=== PATIENT | female | born 1930 | race Two or more races ===

== ENCOUNTER 2018-02-27 20:46 | Inpatient (IN) | payer MEDICARE, OTHER ==
[~2018-02-27] VITALS: Ht 149.9 cm; Wt 74.4 kg
--- NOTE | 2018-02-27 20:50 | NUR ---
BIBRA FROM 89 FROM HOME C/O COUGH X 3 HRS AGO. PT AOX3. RR EVEN AND UNLABORED. NO SOB NOTED. NAD NOTED. NO NVD AT THIS TIME. PT GOWNED AND PLACED ON MONITOR. DR SHAFFER AT BEDSIDE FOR EVAL.
[2018-02-27] MEDS ORDERED: RACEPINEPHRINE HCL 2.25% NEB 0.5 ML VIAL.NEB IH ONE ×2 (21:00→21:08)
[2018-02-27] MEDS ORDERED: CEFTRIAXONE 1GM BAG (ER ONLY) 50 ML IV ONE ×2 (21:00→21:18)
[2018-02-27] MEDS ORDERED: IV NS 0.9% 500 ML BAG IV ONE (21:00)
[2018-02-27] MEDS ORDERED: AZITHROMYCIN 500 MG in IV D5W 250 ML IV ONE (21:00)
[2018-02-27] MEDS ORDERED: DEXAMETHASONE SOD PHOSPHATE 10 MG/ML VIAL IV ONE (21:00)
--- NOTE | 2018-02-27 21:06 | NUR ---
Richard carroll in [facility] - 02/27/18 at [address] PT [address]
--- NOTE | 2018-02-27 21:07 | NUR ---
RT AT BEDSIDE FOR BREATHING TX.
[2018-02-27] MEDS ORDERED: DEXAMETHASONE SOD PHOSPHATE 10 MG/ML VIAL ONE (21:09)
[2018-02-27 21:10] LABS: BASOPHILS # (AUTO) 0.2 /CMM (0.0-0.2); BASOPHILS % (AUTO) 1.2 % (0.0-2.0); EOSINOPHILS % (AUTO) 0.8 % (0.0-6.0); HEMATOCRIT 44 % (33-45); HEMOGLOBIN 14.8 g/dL (11.5-14.8); LYMPHOCYTES # (AUTO) 2.7 /CMM (0.8-4.8); MEAN CORPUSCULAR HGB CONC 33 g/dl (31.0-36.0); MEAN CORPUSCULAR VOLUME 90 fL (82-100); MONOCYTES # (AUTO) 0.7 /CMM (0.1-1.30); MONOCYTES % (AUTO) 5.1 % (2.0-12.0); NEUTROPHILS # (AUTO) 10.7 /CMM (1.8-8.9); NEUTROPHILS % (AUTO) 73.9 % (43.0-81.0); PLATELET COUNT (AUTO) 309 /CMM (150-450); RDW COEFFICIENT OF VARIATION 13.2 (11.5-15.0); RED BLOOD CELL COUNT(AUTO) 4.91 MIL/uL (4.0-5.2); WHITE BLOOD COUNT (AUTO) 14.4 K/uL (4.3-11.0)
[2018-02-27 21:22] LABS: CARBON DIOXIDE 27 mmol/L (21-32); CHLORIDE 102 mmol/L (98-107); CREATININE 0.6 mg/dL (0.6-1.3); GLUCOSE 140 mg/dL (74-106); POTASSIUM 3.8 mmol/L (3.5-5.1); SODIUM SERUM 136 mmol/L (136-145); UREA NITROGEN, BLOOD 16 mg/dL (7-18)
[2018-02-27 21:25] LABS: INR 0.95 (0.85-1.15)
[2018-02-27 21:27] LABS: ALANINE AMINOTRANSFERASE 17 U/L (12-78); ALBUMIN 3.9 g/dL (3.4-5.0); ALKALINE PHOSPHATASE 75 U/L (46-116); ASPARTATE AMINOTRANSFERASE 22 U/L (15-37); BILIRUBIN,DIRECT 0.1 mg/dL (0.0-0.2); BILIRUBIN,TOTAL 0.5 mg/dL (0.2-1.0); TOTAL PROTEIN, SERUM 7.6 g/dL (6.4-8.2)
[2018-02-27 21:30] LABS: TROPONIN I 0.081 ng/mL (0.00-0.056)
--- NOTE | 2018-02-27 21:41 | NUR ---
RADIOLOGY AT BEDSIDE FOR CXR
[2018-02-27] MEDS ORDERED: AZITHROMYCIN 500 MG VIAL ONE (21:54)
--- NOTE | 2018-02-27 21:59 | NUR ---
PT RETURNED FROM CT.
[2018-02-27] MEDS ORDERED: ASPIRIN 81 MG TAB.CHEW PO ONE (22:00)
[2018-02-27] MEDS ORDERED: ASPIRIN 81 MG TAB.CHEW ONE (22:21)
[2018-02-27] MEDS ORDERED: Magnesium 1GM/D5W 100ML PREMIX 100 ML IV SCH (22:30)
[2018-02-27] MEDS ORDERED: ACETAMINOPHEN ES 500 MG TABLET PO ONE (22:30)
--- NOTE | 2018-02-27 22:32 | NUR ---
PER KAYLIN INFORMED BY PT DAUGHTER PT NOTED BLUE, "VOMITTING AND CHOKING" PT SUCTIONED AND MD AT BEDSIDE. 10 CC OF FLUID SUCTIONED.
--- NOTE | 2018-02-27 22:35 | NUR ---
DR. MONTOYA AT BEDSIDE, RTS AT BEDSIDE. PT INTUBATED. ET TUBE 7.5/ 22CM AT THE LIP.
--- NOTE | 2018-02-27 22:36 | NUR ---
CPR INITIATED PER DR. MONTOYA.
--- NOTE | 2018-02-27 22:40 | NUR ---
REACHED ROSC, CODE ENDED. PULSE NOTED. MONITOR DISPLAYS SINUS TACH 140
--- NOTE | 2018-02-27 22:42 | NUR ---
PT VENT SETTINGS AC 18 TV 500 FI02 100 PEEP 5
[2018-02-27] MEDS ORDERED: PROPOFOL 100 ML ONE (22:44)
[2018-02-27 22:45] VITALS: BP 205/118
--- NOTE | 2018-02-27 22:45 | NUR ---
Richard carroll in [facility] - 02/27/[address] MONTOYA AT BEDSIDE, RTS AT BEDSIDE. PT INTUBATED. ET TUBE 7.5/ 22CM AT THE LIP.
--- NOTE | 2018-02-27 22:47 | NUR ---
RADIOLOGY AT BEDSIDE FOR CXR
--- NOTE | 2018-02-27 23:03 | NUR ---
CALLED TO PT BEDSIDE FOR CODE BLUE. RT ARRIVED WITH SETTING UP ETT. RT ASSISTED DR WITH INTUBATION, ETT 7.5@22CM. RT PREFORMED CPR PER MD VERBAL ORDER. PT VENTILATED VIA AMBU BAG AT THIS TIME. ETT SECURED VIA ANCHOR FAST. UPON RETURN OF SPONTANEOUS CIRCULATION PT PLACED ON VENT, SETTINGS AC 18 500 100% +5. ALARMS SET AND AUDIBLE. AMBU BAG AT BEDSIDE. PLUGGED INTO RED OUTLET. PT TOLERATING SETTINGS AT THIS TIME Addendum: 02/27/18 at 2313 by TORI SPAULDING RT Amended: Links added.
--- NOTE | 2018-02-27 23:05 | NUR ---
DR. MONTOYA AT BEDSIDE SPEAKING TO PT DAUGHTER REGARDING POC.
[2018-02-27] MEDS ORDERED: PROPOFOL 100 ML IV PRN (23:30)
--- NOTE | 2018-02-27 23:45 | NUR ---
PER LETI GAVE REPORT TO BANKING CONSULTANT ZITA FOR [facility] BED 256
--- NOTE | 2018-02-27 23:54 | NUR ---
PT TRANSFERRED PER ACLS PROTOCOL.
[2018-02-28] VITALS (63 sets, daily range): BP systolic 119–182; BP diastolic 51–112
--- NOTE | 2018-02-28 | NUR ---
MURAL PAINTER. TROPONIN 1.385,LACTIC ACID 2.6. PAGED MD ROMEO. WAITING FOR CALL BACK.
[2018-02-28] MEDS ORDERED: ONDANSETRON HCL/PF 4 MG/2 ML VIAL IVP PRN (00:30)
[2018-02-28] MEDS ORDERED: methylPREDNISolone SOD SUCC 40 MG/ML VIAL IV SCH (00:30)
[2018-02-28] MEDS ORDERED: ZOLPIDEM TARTRATE 5 MG TABLET PO PRN (00:30)
[2018-02-28] MEDS ORDERED: IPRATROPIUM NEB FS 0.5 MG/2.5 ML AMPUL.NEB NEB PRN (00:30)
[2018-02-28] MEDS ORDERED: MAGNESIUM HYDROXIDE 30 ML UDC PO PRN (00:30)
[2018-02-28] MEDS ORDERED: HYDROCODONE/APAP 5/325MG 1 EACH TABLET PO PRN (00:30)
[2018-02-28] MEDS ORDERED: ALBUTEROL FS 2.5 MG/0.5 ML VIAL.NEB NEB PRN (00:30)
[2018-02-28] MEDS ORDERED: ACETAMINOPHEN 325 MG TABLET PO PRN (00:30)
[2018-02-28] MEDS ORDERED: Z GUARD REMEDY 2 OZ OINT TP PRN (00:30)
[2018-02-28 00:33] LABS: ABG OXYGEN SATURATION 98.7 % (92.0-98.5); ABG PCO2 35.4 mmHg (35.0-45.0); ABG PH 7.426 (7.350-7.450); ABG PO2 179.1 mmHg (75.0-100.0); AaDO2 498.5 mmHg; COHb 0.3 % (0.5-1.5); MetHb 0.6 % (0.0-1.5); O2Hb 97.8 % (94.0-97.0); PEEP,BG 5 cm H2O; SITE, ABG Right Radial
[2018-02-28] MEDS: PROPOFOL 100 ML IV PRN ×5 (00:35→20:57)
--- NOTE | 2018-02-28 00:37 | NUR ---
POST INTUBATION ABG DONE. RN NOTIFIED WITH THE RESULT. TITRATED FIO2. WILL CONTINUE TO MONITOR.
[2018-02-28] MEDS: IV NS 0.9% 1,000 ML IV PRN ×2 (00:38→16:00)
--- NOTE | 2018-02-28 00:42 | NUR ---
KEY BED INSTALLER. ADMISSION. PT BEING ADMITTED FROM ER VIA [facility] RESPIRATORY FAILURE. ORALLY INTUBATED. SEDATED WITH DIPRIVAN. ETT 7,5,LIP 22,AC 18,TV 500,FIO2 100%, PEEP 5. SAT 100%, NO ACUTE DISTRESS NOTED. EQUIPMENT INSTALLATION PROFESSIONAL SHOWING NSR. IV RT AND LT HAND 18G IVF NS 75ML/H, FC PATENT. URINE DRAINING. HOB ELEVATED. NPO. ROSALIO SOFT WRIST RESTRAINT CHECKED AND RELEASED. NO INJURY OR REDNESS NOTED.WILL CONTINUE TO MONITOR VITALS.
[2018-02-28] MEDS: ENOXAPARIN SODIUM 40 MG/0.4 ML DISP.SYRIN SQ SCH (00:44)
[2018-02-28 01:12] LABS: HEMATOCRIT 41 % (33-45); HEMOGLOBIN 13.7 g/dL (11.5-14.8); LYMPHOCYTES # (AUTO) 0.2 /CMM (0.8-4.8); LYMPHOCYTES % (AUTO) 1.1 % (20.0-44.0); MEAN CORPUSCULAR HGB CONC 34 g/dl (31.0-36.0); MEAN CORPUSCULAR VOLUME 90 fL (82-100); MONOCYTES # (AUTO) 0.4 /CMM (0.1-1.30); MONOCYTES % (AUTO) 2.4 % (2.0-12.0); NEUTROPHILS # (AUTO) 16.3 /CMM (1.8-8.9); NEUTROPHILS % (AUTO) 96.5 % (43.0-81.0); PLATELET COUNT (AUTO) 291 /CMM (150-450); RDW COEFFICIENT OF VARIATION 14.3 (11.5-15.0); RED BLOOD CELL COUNT(AUTO) 4.49 MIL/uL (4.0-5.2); WHITE BLOOD COUNT (AUTO) 16.9 K/uL (4.3-11.0)
[2018-02-28 01:27] LABS: ALANINE AMINOTRANSFERASE 57 U/L (12-78); ALBUMIN 3.3 g/dL (3.4-5.0); ALKALINE PHOSPHATASE 73 U/L (46-116); ASPARTATE AMINOTRANSFERASE 89 U/L (15-37); BILIRUBIN,TOTAL 0.5 mg/dL (0.2-1.0); CALCIUM, SERUM 8.4 mg/dL (8.5-10.1); CARBON DIOXIDE 24 mmol/L (21-32); CHLORIDE 100 mmol/L (98-107); CREATININE 0.7 mg/dL (0.6-1.3); GLUCOSE 270 mg/dL (74-106); POTASSIUM 4.1 mmol/L (3.5-5.1); SODIUM SERUM 134 mmol/L (136-145); TOTAL PROTEIN, SERUM 6.6 g/dL (6.4-8.2); UREA NITROGEN, BLOOD 16 mg/dL (7-18)
[2018-02-28] MEDS ORDERED: METRONIDAZOLE 500MG/ NS 100ML 100 ML IV ONE (05:10)
[2018-02-28] MEDS: METRONIDAZOLE 500MG/ NS 100ML 500 MG in PREMIX 1 EA IV SCH ×3 (05:15→21:30)
--- NOTE | 2018-02-28 06:08 | NUR ---
VOCATIONAL NURSE. AM CARE, ORAL CARE, BED BATH GIVEN. LINEN CHANGED, REMAINING SAME VENT SETTING TOLERATED WELL. SAT 98%. NO ACUTE DISTRESS NOTED, EMERGENCY MEDICAL TECH SHOWING NSR. IV RT HAND NS 75ML/H, DIPRIVAN 50MCG/KG/MIN. HOB [id number]. OGT INTACT, FC PATENT URINE DRAINING. TURN AND REPOSITION Q2H. WILL CONTINUE TO MONITOR VITALS.
--- NOTE | 2018-02-28 07:30 | NUR ---
ELECTRICAL ACCESSORIES ASSEMBLER RECEIVED PATIENT ON MECHANICAL VENTILATORY SUPPORT SATURATING WELL ON DIPRIVAN AT 50 MCGS WITH ON GOING IVF AT 75 MLS/HR MAINTAINED ON NPO TURNED PATIENT FROM SIDE TO SIDE WITH JASON CATHETER DRAINING TO YELLOWISH URINE SMALL IN AMOUNT MONITORED CLOSELY
--- NOTE | 2018-02-28 09:00 | NUR ---
HOSPITAL SOCIAL WORKER SEDATION VACATION STARTED MONITORED CLOSELY
--- NOTE | 2018-02-28 09:20 | NUR ---
WOUND CARE CONSULT: PT PRESENTS WITH INTACT SKIN, SOME BRUISING TO RT THIGH, PRESENT ON ADMISSION. CURRENT KALLI SCORE IS 14. ALL SKIN PROTECTION MEASURES IN PLACE AND DISCUSSED WITH NURSING STAFF. CASIE DAVIDSON NOTED. WILL SEE PRN. AREVALO IN AGREEMENT WITH PLAN OF CARE. Addendum: 02/28/18 at 0934 by LAMAR MCCRARY WNDNU Amended: Links added.
--- NOTE | 2018-02-28 09:25 | NUR ---
WALLCOVERING HANGER SEDATION VACATION ENDED PATIENT OPENS EYES, MOVES HAND BUT NO INTERACTION NOTED MONITORED CLOSELY PLACED ON LOW DOSE DIPRIVAN WILL INCREASE WHEN NEEDED
[2018-02-28] MEDS ORDERED: OXYB10TA PO (11:07)
--- NOTE | 2018-02-28 11:21 | NUR ---
CAR PARK ATTENDANT DISCUSSED WITH THE FAMILY MEMBER ABOUT PATIENT'S STATUS I WAS ABLE TO TALK TO THE PATIENT'S GRANDSON WHO IS A DOCTOR FROM [place] GAVE HIM UPDATES ON HIS GRANDMOTHER AND HE WANTED TO PERFORM BRONCHOSCOPY TO THE PATIENT WILL INFORM SWAGE TENDER ABOUT THIS
[2018-02-28] MEDS ORDERED: DEXTROSE 50%-WATER 50 ML DISP.SYRIN IV PRN (17:30)
[2018-02-28] MEDS: BLOOD SUGAR DIAGNOSTIC 1 EACH STRIP IN SCH ×2 (17:40→23:25)
[2018-02-28] MEDS: INSULIN REGULAR, HUMAN 100 UNIT/ML 3 ML VIAL SQ PRN (17:51)
--- NOTE | 2018-02-28 18:04 | NUR ---
ELECTRICAL WIRER AMIRA EMPLOYEE DEVELOPMENT DIRECTOR, SEEN AND EXAMINED THE PATIENT AMIRA WAS ABLE TO TALK TO THE GRANDSON WHO IS A MEDICAL DOCTOR REGARDING THE THE PATIENT'S STATUS AND PROCEDURE FOR TOMORROW CONSENT SIGNED FOR EGD AWAITING TO BE CLEARED BY DOCUMENT CLERK BEFORE THE PROCEDURE DR. JOLLEY IS INFORMED FOR SURGERY CLEARANCE
--- NOTE | 2018-02-28 19:30 | NUR ---
ICU/RN NOTES: RECEIVED PT. IN BED W/ EYES CLOSED W/ ETT 7.5 LIP SECURED. ON DIPRIVAN 30 MCGS. PT. IS SEDATED. HAS BILATERAL SOFT WRIST RESTRAINTS. ON TELE MONITOR W/ NSR W/ PAC'S. PT. HAS RAC AND LFA G 18 PATENT AND INTACT W/ NO S/S OF INFECTION/INFILTRATION NOTED. NO FACIAL GRIMACES OR MOANING NOTED. NO S/S OF ANY RESPIRATORY DISTRESS. TOLERATING VENT SETTINGS WELL. ON IVF NS @ 75 ML/HR. PT. WILL BE NPO AFTER MIDNIGHT DUE TO EGD W/ DR. CANALES. CALL LIGHT W/ REACH. ALL NEEDS MEET. WILL CONTINUE TO MONITOR.
--- NOTE | 2018-02-28 20:00 | NUR ---
PT RECEIVED ORALLY INTUBATED 7.0 ETT SECURED AT 22CM AT THE LIP. NO RESP DISTRESS NOTED. SX'D FOR MOD AMT OF THICK GUDINO SECRETIONS. VENT ALARMS SET AND AUDIBLE. AMBU BAG AT BEDSIDE. ETT SECURED, CUFF BUILDING MATERIALS SALES ATTENDANT. MOVED ETT TO THE LEFT SIDE. WILL CONTINUE TO MONITOR. Addendum: 02/28/18 at 2001 by AGUSTIN OWENS RT Amended: Links added.
[2018-02-28] MEDS ORDERED: CEFTRIAXONE 1 G in IV D5W 50 ML IV SCH (21:00)
[2018-03-01] VITALS (58 sets, daily range): BP systolic 90–207; BP diastolic 17–126
[2018-03-01] MEDS: ENOXAPARIN SODIUM 40 MG/0.4 ML DISP.SYRIN SQ SCH ×2 (00:20→23:53)
[2018-03-01] MEDS: PROPOFOL 100 ML IV PRN ×6 (03:41→22:26)
[2018-03-01 04:36] LABS: HEMATOCRIT 39 % (33-45); HEMOGLOBIN 13.3 g/dL (11.5-14.8); LYMPHOCYTES # (AUTO) 1.2 /CMM (0.8-4.8); LYMPHOCYTES % (AUTO) 7.5 % (20.0-44.0); MEAN CORPUSCULAR HGB CONC 34 g/dl (31.0-36.0); MEAN CORPUSCULAR VOLUME 91 fL (82-100); MONOCYTES # (AUTO) 1.1 /CMM (0.1-1.30); MONOCYTES % (AUTO) 6.6 % (2.0-12.0); NEUTROPHILS # (AUTO) 14.1 /CMM (1.8-8.9); NEUTROPHILS % (AUTO) 85.9 % (43.0-81.0); PLATELET COUNT (AUTO) 238 /CMM (150-450); RDW COEFFICIENT OF VARIATION 14.2 (11.5-15.0); RED BLOOD CELL COUNT(AUTO) 4.26 MIL/uL (4.0-5.2); WHITE BLOOD COUNT (AUTO) 16.4 K/uL (4.3-11.0)
[2018-03-01 04:52] LABS: CARBON DIOXIDE 23 mmol/L (21-32); CHLORIDE 103 mmol/L (98-107); CREATININE 0.5 mg/dL (0.6-1.3); GLUCOSE 119 mg/dL (74-106); PHOSPHORUS 1.7 mg/dL (2.5-4.9); POTASSIUM 3.8 mmol/L (3.5-5.1); SODIUM SERUM 136 mmol/L (136-145); UREA NITROGEN, BLOOD 22 mg/dL (7-18)
[2018-03-01 04:56] LABS: CHOLESTEROL 162 mg/dL (<200); HDL CHOLESTEROL 66 mg/dL (40-60); LDL 81 mg/dL (0-99); TRIGLYCERIDES 76 mg/dL (30-150)
--- NOTE | 2018-03-01 05:01 | NUR ---
ETT MOVED TO RIGHT SIDE.
[2018-03-01] MEDS: METRONIDAZOLE 500MG/ NS 100ML 500 MG in PREMIX 1 EA IV SCH ×2 (05:04→12:17)
[2018-03-01] MEDS: IV NS 0.9% 1,000 ML IV PRN ×2 (05:33→23:13)
[2018-03-01] MEDS: BLOOD SUGAR DIAGNOSTIC 1 EACH STRIP IN SCH ×4 (05:37→23:56)
--- NOTE | 2018-03-01 07:21 | NUR ---
ICU/RN NOTES: NO ACUTE CHANGES NOTED DURING THIS SHIFT. REPORT GIVEN TO AM NURSE FOR PALMER.
[2018-03-01 09:02] LABS: THYROID STIMULATING HORMONE 0.787 uIU/mL (0.358-3.74)
[2018-03-01 10:19] LABS: TROPONIN I 1.391 ng/mL (0.00-0.056)
[2018-03-01] MEDS ORDERED: METOCLOPRAMIDE HCL 10 MG/2 ML VIAL IV ONE (10:30)
[2018-03-01] MEDS ORDERED: METOCLOPRAMIDE HCL 10 MG/2 ML VIAL IV SCH ×2 (10:30→16:00)
[2018-03-01] MEDS ORDERED: Sodium Phosphate 7.5 MMOL in IV D5W 100 ML IV ONE (11:00)
[2018-03-01] MEDS ORDERED: PANTOPRAZOLE 40 MG TABLET.DR PO SCH (17:00)
[2018-03-01] MEDS: INSULIN REGULAR, HUMAN 100 UNIT/ML 3 ML VIAL SQ PRN (17:07)
[2018-03-01] MEDS: METOCLOPRAMIDE HCL 10 MG/2 ML VIAL IV SCH ×2 (17:11→23:51)
[2018-03-01] MEDS: NITROGLYCERIN 30 GM TUBE TOP SCH (19:08)
--- NOTE | 2018-03-01 20:00 | NUR ---
received pt from day shift, sedated on Diprivan at 35mcg, SR, PACs, intubated on the vent, lungs congested, no edema, NG tube clamped, NPO, diaper on, restraints on, v/s stable, no pain, pt turned and repositioned.
--- NOTE | 2018-03-01 20:10 | NUR ---
PT RECEIVED ORALLY INTUBATED 7.0 ETT SECURED @22 CM AT THE LIP, WITH NOTED SETTINGS, AC 18,500 ,PEEP 5 , 40% . VENT ALARMS SET AND AUDIBLE. AMBU BAG AT [facility]. SUCTIONED SMALL AMOUNT OF THICK YELLOW SECRETIONS. NO RESPIRATORY DISTRESS NOTED AT THIS TIME. WILL CONTINUE TO MONITOR.
[2018-03-01] MEDS: PANTOPRAZOLE 40 MG VIAL IV SCH (21:22)
[2018-03-01] MEDS: PIPERACILLIN /TAZOBACTAM 3.375 G in IV D5W 50 ML IV SCH (21:22)
[2018-03-02] VITALS (48 sets, daily range): BP systolic 97–179; BP diastolic 39–108
--- NOTE | 2018-03-02 00:18 | NUR ---
pt is resting in the bed, sedated on Diprivan at 35mcg, v/s stable, no pain, pt turned and repositioned q2hrs.
[2018-03-02] MEDS: ACETAMINOPHEN 650 MG/20.3 ML UDC NG PRN (00:34)
--- NOTE | 2018-03-02 04:20 | NUR ---
pt is resting in the bed, sedated on Diprivan at 30mcg, SR, v/s stable, no pain, pt cleaned, changed and repositioned q2hrs.
[2018-03-02] MEDS: PROPOFOL 100 ML IV PRN ×2 (04:30→23:19)
[2018-03-02] MEDS: PIPERACILLIN /TAZOBACTAM 3.375 G in IV D5W 50 ML IV SCH ×4 (05:04→23:45)
[2018-03-02] MEDS: METOCLOPRAMIDE HCL 10 MG/2 ML VIAL IV SCH ×3 (05:04→18:04)
[2018-03-02 05:16] LABS: EOSINOPHILS % (AUTO) 0.5 % (0.0-6.0); HEMATOCRIT 38 % (33-45); HEMOGLOBIN 13.2 g/dL (11.5-14.8); LYMPHOCYTES # (AUTO) 1.9 /CMM (0.8-4.8); LYMPHOCYTES % (AUTO) 13.2 % (20.0-44.0); MEAN CORPUSCULAR HGB CONC 34 g/dl (31.0-36.0); MEAN CORPUSCULAR VOLUME 91 fL (82-100); MONOCYTES # (AUTO) 0.7 /CMM (0.1-1.30); MONOCYTES % (AUTO) 4.7 % (2.0-12.0); NEUTROPHILS # (AUTO) 11.7 /CMM (1.8-8.9); NEUTROPHILS % (AUTO) 81.6 % (43.0-81.0); PLATELET COUNT (AUTO) 208 /CMM (150-450); RDW COEFFICIENT OF VARIATION 14.1 (11.5-15.0); RED BLOOD CELL COUNT(AUTO) 4.21 MIL/uL (4.0-5.2); WHITE BLOOD COUNT (AUTO) 14.3 K/uL (4.3-11.0)
[2018-03-02] MEDS: NITROGLYCERIN 30 GM TUBE TOP SCH ×2 (05:36→18:06)
[2018-03-02 06:04] LABS: ALANINE AMINOTRANSFERASE 46 U/L (12-78); ALBUMIN 2.3 g/dL (3.4-5.0); ALKALINE PHOSPHATASE 64 U/L (46-116); ASPARTATE AMINOTRANSFERASE 29 U/L (15-37); BILIRUBIN,TOTAL 0.8 mg/dL (0.2-1.0); CARBON DIOXIDE 21 mmol/L (21-32); CHLORIDE 105 mmol/L (98-107); CREATININE 0.6 mg/dL (0.6-1.3); GLUCOSE 122 mg/dL (74-106); MAGNESIUM 2.7 mg/dL (1.8-2.4); PHOSPHORUS 2.1 mg/dL (2.5-4.9); POTASSIUM 3.6 mmol/L (3.5-5.1); SODIUM SERUM 136 mmol/L (136-145); TOTAL PROTEIN, SERUM 5.6 g/dL (6.4-8.2); UREA NITROGEN, BLOOD 17 mg/dL (7-18)
[2018-03-02] MEDS: BLOOD SUGAR DIAGNOSTIC 1 EACH STRIP IN SCH ×4 (06:19→23:52)
[2018-03-02 06:21] LABS: TROPONIN I 0.466 ng/mL (0.00-0.056)
[2018-03-02] MEDS ORDERED: CLONIDINE HCL 0.2MG/24H PTWK 1 EA PATCH TD SCH (07:00)
[2018-03-02] MEDS ORDERED: POTASSIUM PHOSPHATE MM 15 MMOL in IV D5W 250 ML IV SCH (09:00)
[2018-03-02] MEDS: PANTOPRAZOLE 40 MG VIAL IV SCH ×2 (09:35→21:04)
--- NOTE | 2018-03-02 10:37 | NUR ---
Spoke with Dr Roca about Dr Alegria's recommendation for peg tube and she said if the daughter Madelyn gave permission, then put order in. Spoke with Madelyn and she agreed to peg and signed cont for peg, anesthesia and blood transfusion.
[2018-03-02] MEDS: INSULIN REGULAR, HUMAN 100 UNIT/ML 3 ML VIAL SQ PRN (13:03)
[2018-03-02] MEDS: IV NS 0.9% 1,000 ML IV PRN (14:27)
[2018-03-02 14:41] LABS: ABG BASE EXCESS -1.7 mmol/L; ABG PCO2 25.8 mmHg (35.0-45.0); ABG PH 7.501 (7.350-7.450); ABG PO2 114.5 mmHg (75.0-100.0); PEEP,BG 5 cm H2O; SITE, ABG Left Radial; VT, ABG 500 mL
[2018-03-02] MEDS: hydrALAZINE HCL IV 20 MG VIAL IV PRN (15:28)
[2018-03-02] MEDS: JEVITY 1.2 CAL 1,000 ML BOTTLE PEG SCH (17:00)
--- NOTE | 2018-03-02 19:30 | NUR ---
ICU/RN RECEIVED PT.ON VENT VIA ORAL ETT,SEDATED W/DIPRIVAN AT 30MCG/KG/MIN.OPENS EYES TO TO TOUCH.
[2018-03-03] VITALS (55 sets, daily range): BP systolic 89–189; BP diastolic 40–97
[2018-03-03] MEDS: ENOXAPARIN SODIUM 40 MG/0.4 ML DISP.SYRIN SQ SCH (00:30)
--- NOTE | 2018-03-03 00:30 | NUR ---
ICU/RN LOVENOX NOT GIVEN,PULLED OUT AT 0930 IN AM 03/02
--- NOTE | 2018-03-03 03:57 | NUR ---
RT PT RECEIVED INTUBATED ON [facility] VENT WITH NOTED SETTING. ETT PATENT AND SECURE VIA ANCHOR FAST. VENT TO RED OUTLET. ALARM SET AND AUDIBLE. DRAFTER SEISMOGRAPH DONE. AMBU BAG AT [facility]. NO SOB OR DISTRESS NOTED ON SHIFT. Addendum: 03/03/18 at 0357 by KELBY HENDRICKS RT Amended: Links added.
[2018-03-03 05:13] LABS: EOSINOPHILS % (AUTO) 1.3 % (0.0-6.0); HEMATOCRIT 36 % (33-45); HEMOGLOBIN 12.3 g/dL (11.5-14.8); LYMPHOCYTES % (AUTO) 7.3 % (20.0-44.0); MEAN CORPUSCULAR HGB CONC 34 g/dl (31.0-36.0); MEAN CORPUSCULAR VOLUME 91 fL (82-100); MONOCYTES % (AUTO) 7.2 % (2.0-12.0); NEUTROPHILS % (AUTO) 84.2 % (43.0-81.0); PLATELET COUNT (AUTO) 232 /CMM (150-450); RDW COEFFICIENT OF VARIATION 14.4 (11.5-15.0); RED BLOOD CELL COUNT(AUTO) 4.01 MIL/uL (4.0-5.2); WHITE BLOOD COUNT (AUTO) 14.2 K/uL (4.3-11.0)
[2018-03-03 05:35] LABS: TROPONIN I 0.229 ng/mL (0.00-0.056)
[2018-03-03 05:42] LABS: ALANINE AMINOTRANSFERASE 33 U/L (12-78); ALBUMIN 1.9 g/dL (3.4-5.0); ALKALINE PHOSPHATASE 63 U/L (46-116); ASPARTATE AMINOTRANSFERASE 18 U/L (15-37); BILIRUBIN,TOTAL 0.7 mg/dL (0.2-1.0); CARBON DIOXIDE 25 mmol/L (21-32); CHLORIDE 111 mmol/L (98-107); CREATININE 0.2 mg/dL (0.6-1.3); GLUCOSE 132 mg/dL (74-106); MAGNESIUM 2.3 mg/dL (1.8-2.4); PHOSPHORUS 2.4 mg/dL (2.5-4.9); POTASSIUM 3.4 mmol/L (3.5-5.1); SODIUM SERUM 143 mmol/L (136-145); TOTAL PROTEIN, SERUM 5.3 g/dL (6.4-8.2); UREA NITROGEN, BLOOD 14 mg/dL (7-18)
[2018-03-03] MEDS: METOCLOPRAMIDE HCL 10 MG/2 ML VIAL IV SCH ×4 (06:26→18:03)
[2018-03-03] MEDS: NITROGLYCERIN 30 GM TUBE TOP SCH ×2 (06:27→18:04)
[2018-03-03] MEDS: PIPERACILLIN /TAZOBACTAM 3.375 G in IV D5W 50 ML IV SCH ×4 (06:28→23:42)
[2018-03-03] MEDS: PROPOFOL 100 ML IV PRN ×2 (06:43→12:06)
[2018-03-03] MEDS: IV NS 0.9% 1,000 ML IV PRN ×2 (07:00→20:37)
[2018-03-03] MEDS: INSULIN REGULAR, HUMAN 100 UNIT/ML 3 ML VIAL SQ PRN ×3 (07:07→17:59)
[2018-03-03] MEDS: BLOOD SUGAR DIAGNOSTIC 1 EACH STRIP IN SCH ×3 (07:10→17:59)
--- NOTE | 2018-03-03 07:15 | NUR ---
ICU/RN REPORT AND CARE OF PT. GIVEN TO ROOSEVELT.PT REMAINS ON DIPRIVAN.TOLERATING TUBE FEEDING WELL
[2018-03-03] MEDS ORDERED: POTASSIUM CHLORIDE 20 MEQ POWDER PACKET NG SCH (08:30)
[2018-03-03] MEDS: PANTOPRAZOLE 40 MG VIAL IV SCH ×2 (08:39→20:55)
[2018-03-03] MEDS: ACETAMINOPHEN 650 MG/20.3 ML UDC NG PRN ×2 (08:39→14:32)
[2018-03-03 09:26] LABS: ABG BASE EXCESS -3.7 mmol/L; ABG OXYGEN SATURATION 96.9 % (92.0-98.5); ABG PCO2 33.1 mmHg (35.0-45.0); ABG PH 7.403 (7.350-7.450); ABG PO2 97.6 mmHg (75.0-100.0); AaDO2 149.5 mmHg; COHb 0.3 % (0.5-1.5); MetHb 0.5 % (0.0-1.5); O2Hb 96.1 % (94.0-97.0); PEEP,BG 5 cm H2O; SITE, ABG Right Radial; VT, ABG 450 mL
[2018-03-03] MEDS ORDERED: NEUTRA PHOS 1 POWD.PACKET GT ONE (15:30)
--- NOTE | 2018-03-03 19:30 | NUR ---
ICU/RN RECEIVED PT. ON VENT VIA ORAL ETT,ON DIPRIVAN DRIP AT 15MCG/KG/MIN.OPENS EYES TO TO TOUCH AND WHEN NANAME CALLED.DOES NOT TRACK,DOES NOT FOLLOW COMMANDS.GASTROSTOMY TUBE IN OLACE.NPO FOR NOW.
--- NOTE | 2018-03-03 19:51 | NUR ---
pt sputum sample collected roughly 10cc, thick red tinged galarza secretion collected. Sample was labeled and placed in fridge for collection by slab polisher Abril is aware.
[2018-03-03] MEDS: hydrALAZINE HCL IV 20 MG VIAL IV PRN (20:54)
[2018-03-04] VITALS (58 sets, daily range): BP systolic 116–185; BP diastolic 51–79
[2018-03-04] MEDS: METOCLOPRAMIDE HCL 10 MG/2 ML VIAL IV SCH ×4 (00:15→17:29)
[2018-03-04] MEDS: BLOOD SUGAR DIAGNOSTIC 1 EACH STRIP IN SCH ×4 (00:16→17:30)
[2018-03-04] MEDS: ENOXAPARIN SODIUM 40 MG/0.4 ML DISP.SYRIN SQ SCH (00:25)
--- NOTE | 2018-03-04 02:00 | NUR ---
ICU/RN INCONTINENT OF LARGE AMT URINE,DIAPER SOAKED,CLEANSED AND CHUX CHANGED.EYES OPEN AND TRACKS SOMETIMES DOES NOT FOLLOW COMMANDS.
[2018-03-04] MEDS: hydrALAZINE HCL IV 20 MG VIAL IV PRN ×3 (03:02→17:29)
[2018-03-04 04:59] LABS: BASOPHILS % (AUTO) 0.2 % (0.0-2.0); EOSINOPHILS % (AUTO) 2.9 % (0.0-6.0); HEMATOCRIT 39 % (33-45); HEMOGLOBIN 12.8 g/dL (11.5-14.8); LYMPHOCYTES # (AUTO) 1.5 /CMM (0.8-4.8); LYMPHOCYTES % (AUTO) 9.8 % (20.0-44.0); MEAN CORPUSCULAR HGB CONC 33 g/dl (31.0-36.0); MEAN CORPUSCULAR VOLUME 91 fL (82-100); MONOCYTES # (AUTO) 1.4 /CMM (0.1-1.30); MONOCYTES % (AUTO) 9.1 % (2.0-12.0); NEUTROPHILS # (AUTO) 12.3 /CMM (1.8-8.9); PLATELET COUNT (AUTO) 199 /CMM (150-450); RDW COEFFICIENT OF VARIATION 14.3 (11.5-15.0); RED BLOOD CELL COUNT(AUTO) 4.23 MIL/uL (4.0-5.2); WHITE BLOOD COUNT (AUTO) 15.8 K/uL (4.3-11.0)
[2018-03-04 05:21] LABS: CALCIUM, SERUM 8.7 mg/dL (8.5-10.1); CARBON DIOXIDE 19 mmol/L (21-32); CHLORIDE 113 mmol/L (98-107); GLUCOSE 106 mg/dL (74-106); MAGNESIUM 2.4 mg/dL (1.8-2.4); PHOSPHORUS 3.5 mg/dL (2.5-4.9); POTASSIUM 4.1 mmol/L (3.5-5.1); SODIUM SERUM 145 mmol/L (136-145); UREA NITROGEN, BLOOD 23 mg/dL (7-18)
[2018-03-04] MEDS: PIPERACILLIN /TAZOBACTAM 3.375 G in IV D5W 50 ML IV SCH ×3 (05:50→17:30)
[2018-03-04] MEDS: NITROGLYCERIN 30 GM TUBE TOP SCH ×2 (06:06→17:37)
[2018-03-04] MEDS: PROPOFOL 100 ML IV PRN (06:27)
--- NOTE | 2018-03-04 06:48 | NUR ---
ICU/RN UNABLE TO OBTAIN PT. INCONTINENT OF URINE AND STOOL,CLEANSED AND CHUX AND DIAPER CHANGED.CONDITION UNCHANGED.
[2018-03-04] MEDS: JEVITY 1.2 CAL 1,000 ML BOTTLE PEG SCH (07:33)
[2018-03-04] MEDS: PANTOPRAZOLE 40 MG VIAL IV SCH ×2 (08:56→20:44)
[2018-03-04] MEDS: ACETAMINOPHEN 650 MG/20.3 ML UDC NG PRN ×2 (09:06→17:28)
[2018-03-04 09:45] LABS: ABG BASE EXCESS -4.6 mmol/L; ABG OXYGEN SATURATION 97.5 % (92.0-98.5); ABG PCO2 31.5 mmHg (35.0-45.0); ABG PH 7.401 (7.350-7.450); ABG PO2 104.9 mmHg (75.0-100.0); AaDO2 144.1 mmHg; COHb 0.3 % (0.5-1.5); MetHb 0.5 % (0.0-1.5); O2Hb 96.7 % (94.0-97.0); PEEP,BG 5 cm H2O; SITE, ABG Right Radial
[2018-03-04] MEDS: INSULIN REGULAR, HUMAN 100 UNIT/ML 3 ML VIAL SQ PRN (12:27)
[2018-03-04] MEDS ORDERED: LORAZEPAM INJ 2 MG/ML VIAL IVP PRN (12:30)
[2018-03-04] MEDS ORDERED: LIDOCAINE 5% (PATCH) 1 EA PATCH TP SCH (12:30)
[2018-03-04] MEDS ORDERED: IV NS 0.9% 1,000 ML BAG IV PRN (12:30)
[2018-03-04] MEDS ORDERED: IV NS 0.9% 1,000 ML IV PRN (13:00)
--- NOTE | 2018-03-04 19:30 | NUR ---
TECHNICAL PROPOSAL WRITER INITIAL NOTE RN RECEIVED PT IN BED ON VENT VIA ORAL ETT,NO IV FLUIDS RUNNING AT THIS TIME, DAUGHTER AT BEDSIDE PATIENT REPORT TO OPENS EYES TO TO TOUCH AND WHEN NAME CALLED HOWEVER PATIEN T APPEAR OBTUNDED PATIENT OBSERVED TO MOVE AWAY FROM TOUCH, PT DOES NOT TRACK AT THIS TIME OR OPEN EYES , PEG TUBE IN PLACE AT THIS TIME G-TUBE FEEDING BEING TOLERATED WELL, PT REMAINS NPO , NO RESTRAINTS ON PATIENT NOT PULLING AT TUBES , NO DISTRESS NOTED, PATIENT TOLERATING CIPAP WELL , RN WILL CONTINUE TO FOLLOW PATIENT THROUGHOUT THE NIGHT
--- NOTE | 2018-03-04 22:10 | NUR ---
PT RECEIVED INTUBATED ON [facility] VENT WITH NOTED SETTING. ETT PATENT AND SECURE VIA ANCHOR FAST. VENT PLUGGED INTO RED OUTLET. ALARMS SET AND AUDIBLE. DISCONNECT ALARMS CHECKED. AMBU BAG AT BEDSIDE. TOLERATING VENT AT THIS TIME Addendum: 03/04/18 at 2210 by TORI SPAULDING RT Amended: Links added.
[2018-03-05] VITALS (43 sets, daily range): BP systolic 143–204; BP diastolic 54–104
[2018-03-05] MEDS: BLOOD SUGAR DIAGNOSTIC 1 EACH STRIP IN SCH ×4 (00:07→17:09)
[2018-03-05] MEDS: PIPERACILLIN /TAZOBACTAM 3.375 G in IV D5W 50 ML IV SCH ×4 (00:07→17:10)
[2018-03-05] MEDS: METOCLOPRAMIDE HCL 10 MG/2 ML VIAL IV SCH ×4 (00:07→17:09)
[2018-03-05] MEDS: ENOXAPARIN SODIUM 40 MG/0.4 ML DISP.SYRIN SQ SCH (00:12)
[2018-03-05 05:08] LABS: BASOPHILS % (AUTO) 0.2 % (0.0-2.0); EOSINOPHILS % (AUTO) 4.1 % (0.0-6.0); HEMATOCRIT 34 % (33-45); HEMOGLOBIN 11.6 g/dL (11.5-14.8); LYMPHOCYTES # (AUTO) 1.4 /CMM (0.8-4.8); LYMPHOCYTES % (AUTO) 12.5 % (20.0-44.0); MEAN CORPUSCULAR HGB CONC 34 g/dl (31.0-36.0); MEAN CORPUSCULAR VOLUME 91 fL (82-100); MONOCYTES % (AUTO) 9.4 % (2.0-12.0); NEUTROPHILS % (AUTO) 73.8 % (43.0-81.0); PLATELET COUNT (AUTO) 185 /CMM (150-450); RDW COEFFICIENT OF VARIATION 14.7 (11.5-15.0); WHITE BLOOD COUNT (AUTO) 10.8 K/uL (4.3-11.0)
[2018-03-05] MEDS: INSULIN REGULAR, HUMAN 100 UNIT/ML 3 ML VIAL SQ PRN ×3 (05:14→17:10)
[2018-03-05 05:26] LABS: CALCIUM, SERUM 8.7 mg/dL (8.5-10.1); CARBON DIOXIDE 23 mmol/L (21-32); CHLORIDE 115 mmol/L (98-107); CREATININE 1.1 mg/dL (0.6-1.3); GLUCOSE 127 mg/dL (74-106); MAGNESIUM 2.5 mg/dL (1.8-2.4); PHOSPHORUS 3.8 mg/dL (2.5-4.9); SODIUM SERUM 147 mmol/L (136-145); UREA NITROGEN, BLOOD 31 mg/dL (7-18)
[2018-03-05] MEDS: NITROGLYCERIN 30 GM TUBE TOP SCH ×2 (05:38→19:07)
--- NOTE | 2018-03-05 06:38 | NUR ---
RN NOTE PATIENT IN STABLE CONDITION PATIENT OPENS EYES TO VERBAL RESPONSE SQUEEZES HAND AT RESPONSE, PATIENT ABLE TO TRACK, PATIENT TURNED AND REPOSITION Q 2HRS, PATIENTS CARE WILL BE ENDORSED TO THE AM RN . PATIENT STABLE AT THIS TIME .
--- NOTE | 2018-03-05 07:36 | NUR ---
SOLE CEMENTER RECEIVED PATIENT FROM THE PREVIOUS SHIFT. ORALLY INTUBATED. OFF SEDATION FOR 24 HOURS. VENT SETTINGS REVIEWED AND VERIFIED. CPAP MODE. NO JASON PER FAMILY REQUEST. TURNED AND REPOSITIONED FOR COMFORT AND WOUND PREVENTION. WILL CONTINUE TO MONITOR AND PROVIDE CARE.
[2018-03-05] MEDS: hydrALAZINE HCL IV 20 MG VIAL IV PRN ×3 (08:34→21:21)
[2018-03-05] MEDS: PANTOPRAZOLE 40 MG VIAL IV SCH ×2 (08:36→20:37)
[2018-03-05 09:00] LABS: ABG BASE EXCESS -1.5 mmol/L; ABG OXYGEN SATURATION 97.1 % (92.0-98.5); ABG PCO2 32.4 mmHg (35.0-45.0); ABG PH 7.445 (7.350-7.450); ABG PO2 91.6 mmHg (75.0-100.0); AaDO2 156.3 mmHg; COHb 0.3 % (0.5-1.5); MetHb 0.5 % (0.0-1.5); O2Hb 96.3 % (94.0-97.0); PEEP,BG 5 cm H2O; SITE, ABG Left Radial; VENT MODE, BG 40%
--- NOTE | 2018-03-05 09:20 | NUR ---
PT. EXTUBATED PER DR. ZHANG ORDER PLACED ON 4L/MIN N/C Addendum: 03/05/18 at 1600 by HOWARD SANCHEZ RT Amended: Links added.
--- NOTE | 2018-03-05 09:28 | NUR ---
SAFETY NET MAKER PATIENT EXTUBATED AT 0920H. TOLERATED WELL. CLOSELY MONITORED. ON NASAL CANNULA NOW.
[2018-03-05] MEDS ORDERED: DC PROPOFOL WHEN EXTUBATED XX PRN (09:30)
[2018-03-05] MEDS: hydrALAZINE HCL 50 MG TABLET PO SCH ×3 (10:06→17:09)
--- NOTE | 2018-03-05 10:06 | NUR ---
DEFECTIVE CIGARETTE SLITTER RN ASSESSED THE PATIENT. PATIENT IS ABLE OT SMILE WITHOUT BILATERAL EQUAL STRENGTH. PATIENT HAS A WEAK BUT EQUAL STRENGTH ABLE BODIED SEAMAN ON HANDS AT THIS TIME. PATIENT ABLE TO MOVE THE HEAD WELL AT THIS TIME. PATIENT WAS SEEN AND EXAMINED BY THE DIRECTOR OF NURSING AND PRIMARY MD DR. ORDONEZ. FAMILY AT BEDSIDE.
[2018-03-05 11:06] LABS: ABG BASE EXCESS -2.7 mmol/L; ABG PCO2 31.3 mmHg (35.0-45.0); ABG PH 7.435 (7.350-7.450); ABG PO2 96.1 mmHg (75.0-100.0); AaDO2 124.3 mmHg; COHb 0.3 % (0.5-1.5); MetHb 0.5 % (0.0-1.5); O2Hb 96.2 % (94.0-97.0); SITE, ABG Left Radial; VENT MODE, BG N/C
--- NOTE | 2018-03-05 16:15 | NUR ---
GROUP CARE WORKER PATIENT WAS SEEN AND EXAMINED BY DR. ROMEO. 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 FAMILY MADE AWARE OF CT RESULTS. FAMILY REFUSES MRI SCAN SCHEDULED FOR TOMORROW. RN EXPLAINED THE FAMILY THE RISKS AND BENEFITS. DR. ROMEO MADE AWARE. CHECK LIST NOT COMPLETED SINCE NO CONSENT RECEIVED FROM FAMILY.
[2018-03-05] MEDS: ASPIRIN 81 MG TAB.CHEW PO SCH (17:09)
[2018-03-05] MEDS ORDERED: JEVITY 1.2 CAL 1,000 ML BOTTLE PEG SCH (18:03)
--- NOTE | 2018-03-05 20:00 | NUR ---
ICU/RN RECEIVED PT W/EYES OPEN TRACKS,DOES NOT FOLLOW COMMANDS.ONN/C AT 4LPM,SAT=96-08%.RESP REGULAR AND EVEN.MONITOR SHOWS NSR.
--- NOTE | 2018-03-05 21:21 | NUR ---
ICU/RN GIVEN HYDRALAZINE 10 MG IV FOR SBP OF 166MMHG.WILL CONTINUE TO MONITOR.
[2018-03-05] MEDS: ATORVASTATIN 10 MG TABLET GT SCH (21:24)
--- NOTE | 2018-03-05 22:30 | NUR ---
ICU/RN CPO=[id number] FROM ONE HOUR AGO.
[2018-03-06] VITALS (43 sets, daily range): BP systolic 131–193; BP diastolic 54–109
[2018-03-06] MEDS: PIPERACILLIN /TAZOBACTAM 3.375 G in IV D5W 50 ML IV SCH ×5 (00:09→23:26)
[2018-03-06] MEDS: METOCLOPRAMIDE HCL 10 MG/2 ML VIAL IV SCH ×5 (00:14→23:27)
[2018-03-06] MEDS: INSULIN REGULAR, HUMAN 100 UNIT/ML 3 ML VIAL SQ PRN ×2 (00:20→05:48)
[2018-03-06] MEDS: BLOOD SUGAR DIAGNOSTIC 1 EACH STRIP IN SCH ×4 (00:20→17:22)
[2018-03-06] MEDS: ENOXAPARIN SODIUM 40 MG/0.4 ML DISP.SYRIN SQ SCH (01:00)
[2018-03-06] MEDS: ACETAMINOPHEN 650 MG/20.3 ML UDC NG PRN (02:36)
--- NOTE | 2018-03-06 02:36 | NUR ---
ICU/RN GRIMACING WHEN ORAL CARE DONE.GIVEN TYLENOL 650 MG VIA G-TUBE.
[2018-03-06] MEDS: hydrALAZINE HCL IV 20 MG VIAL IV PRN (03:02)
--- NOTE | 2018-03-06 04:30 | NUR ---
ICU/RN AWAKE,ALERT,SHAKES HEAD WHEN ASKED IF IN PAIN.ATTEMPTS TO COMMUNICATE BUT I CAN NOT UNDERSTAND PT.INCONTINENT OF URINE AND STOOL,CLEANSED AND PARTIAL LINEN CHANGED.REQUIRED 2 DOSES OF APRESOLINE 10 MG IVP-SEE VITAL SIGN SHEET.
[2018-03-06 04:34] LABS: EOSINOPHILS % (AUTO) 1.5 % (0.0-6.0); HEMATOCRIT 37 % (33-45); HEMOGLOBIN 12.6 g/dL (11.5-14.8); LYMPHOCYTES # (AUTO) 1.3 /CMM (0.8-4.8); LYMPHOCYTES % (AUTO) 10.2 % (20.0-44.0); MEAN CORPUSCULAR HGB CONC 34 g/dl (31.0-36.0); MEAN CORPUSCULAR VOLUME 91 fL (82-100); MONOCYTES # (AUTO) 1.1 /CMM (0.1-1.30); MONOCYTES % (AUTO) 8.8 % (2.0-12.0); NEUTROPHILS # (AUTO) 9.8 /CMM (1.8-8.9); NEUTROPHILS % (AUTO) 79.5 % (43.0-81.0); PLATELET COUNT (AUTO) 191 /CMM (150-450); RDW COEFFICIENT OF VARIATION 14.7 (11.5-15.0); RED BLOOD CELL COUNT(AUTO) 4.11 MIL/uL (4.0-5.2); WHITE BLOOD COUNT (AUTO) 12.4 K/uL (4.3-11.0)
[2018-03-06 04:56] LABS: ALANINE AMINOTRANSFERASE 32 U/L (12-78); ALBUMIN 2.2 g/dL (3.4-5.0); ALKALINE PHOSPHATASE 124 U/L (46-116); ASPARTATE AMINOTRANSFERASE 39 U/L (15-37); BILIRUBIN,TOTAL 0.4 mg/dL (0.2-1.0); CALCIUM, SERUM 9.2 mg/dL (8.5-10.1); CARBON DIOXIDE 23 mmol/L (21-32); CHLORIDE 115 mmol/L (98-107); CREATININE 0.9 mg/dL (0.6-1.3); GLUCOSE 161 mg/dL (74-106); MAGNESIUM 2.8 mg/dL (1.8-2.4); PHOSPHORUS 3.2 mg/dL (2.5-4.9); POTASSIUM 4.1 mmol/L (3.5-5.1); SODIUM SERUM 148 mmol/L (136-145); TOTAL PROTEIN, SERUM 6.2 g/dL (6.4-8.2); UREA NITROGEN, BLOOD 37 mg/dL (7-18)
[2018-03-06 05:27] LABS: BAND % (MANUAL) 2 % (0.0-5.0); LYMPHOCYTES % (MANUAL) 12 % (16-48); METAMYELOCYTES % 3 % (0-0); MONOCYTES % (MANUAL) 5 % (0-11.0); MYELOCYTES % 1 % (0-0); NEUTROPHILS % (MANUAL) 77 (42-76)
[2018-03-06] MEDS: NITROGLYCERIN 30 GM TUBE TOP SCH ×2 (06:20→17:30)
--- NOTE | 2018-03-06 06:35 | NUR ---
TEXTED DR. VIDAL FOR MRI BRAIN APPROVAL.
--- NOTE | 2018-03-06 07:01 | NUR ---
ICU/RN REPORT AND CARE OF PT GIVEN TO ADEBAYO NAVARRO.
[2018-03-06] MEDS ORDERED: FUROSEMIDE 20 MG/2 ML VIAL IV ONE (07:30)
--- NOTE | 2018-03-06 07:30 | NUR ---
CLIPMAN RECEIVED PATIENT FROM THE PREVIOUS SHIFT. PATIENT IS ALERT AND ORIENTED. ON NASAL CANNULA. STABLE VITAL SINGS. STILL APHASIC. TURNED AND REPOSITIONED FOR COMFORT WOUND PREVENTION. WILL CONTINUE TO MONITOR AND PROVIDE CARE.
[2018-03-06] MEDS: hydrALAZINE HCL 50 MG TABLET PO SCH ×3 (08:42→17:22)
[2018-03-06] MEDS: PANTOPRAZOLE 40 MG/PACK PACK GT SCH (08:43)
[2018-03-06] MEDS: ASPIRIN 81 MG TAB.CHEW PO SCH (08:43)
--- NOTE | 2018-03-06 08:50 | NUR ---
MANUFACTURING MANAGER PRIMARY MD MADE AWARE THAT FAMILY IS REFUSING MRI OF THE BRAIN AT THIS TIME.
--- NOTE | 2018-03-06 10:14 | NUR ---
PRODUCE SERVICE TEAM MEMBER CALLED MATT ISLAS DNP REGARDING PICC LINE RETRACTION. RECEIVED ORDERS TO RECHECK CXR TOMORROW AND NOT TO RETRACT THE PICC TODAY.
[2018-03-06] MEDS: JEVITY 1.2 CAL 1,000 ML BOTTLE PEG SCH (17:45)
[2018-03-06] MEDS: AMLODIPINE BESYLATE 5 MG TABLET GT SCH (18:34)
--- NOTE | 2018-03-06 19:25 | NUR ---
Received patient awake alert non verbal responsive to verbal commands.VS stable. SR with occasional pac's.Normotensive.O2 saturation 95 % on 4L NC.Respiration even and unlabored.GT feeding in progress with HOB elevated.ELADIA PICC LINE intact with NS at TKO infusing.Turned and repositioned.
--- NOTE | 2018-03-06 21:24 | NUR ---
PT ON 4L NC. NO RESP DISTRESS. O2 SAT 97%. WILL CONTINUE TO MONITOR.
[2018-03-06] MEDS: ATORVASTATIN 10 MG TABLET GT SCH (22:01)
[2018-03-07] VITALS (26 sets, daily range): BP systolic 124–206; BP diastolic 48–101
--- NOTE | 2018-03-07 | NUR ---
Patient incontinent of urine.Perineal care and bed bath rendered.Body lotion applied. Z guard applied to perineal applied as preventive measures.Complete linens changed . Turned and repositioned.
[2018-03-07] MEDS: ENOXAPARIN SODIUM 40 MG/0.4 ML DISP.SYRIN SQ SCH ×2 (00:30→23:54)
--- NOTE | 2018-03-07 04:00 | NUR ---
Patient resting open eyes to verbal stimuli.VS stable.Incontinent of urine. Perineal care done.Oral care done.Turned and repositioned offloading pressure points.
--- NOTE | 2018-03-07 05:20 | NUR ---
,Radiology called regarding PICC line to be retracted.Made him aware that Krishna CORDON will come to fix it today per report from RAMON Polanco from previous shift.
[2018-03-07] MEDS: PIPERACILLIN /TAZOBACTAM 3.375 G in IV D5W 50 ML IV SCH ×3 (06:00→17:39)
[2018-03-07] MEDS: METOCLOPRAMIDE HCL 10 MG/2 ML VIAL IV SCH ×4 (06:00→23:39)
[2018-03-07] MEDS: NITROGLYCERIN 30 GM TUBE TOP SCH ×2 (06:01→18:24)
--- NOTE | 2018-03-07 07:19 | NUR ---
Patient awake smiling on rounds.VS remains stable.SR.Report given to Soy for continuity of care.
--- NOTE | 2018-03-07 07:30 | NUR ---
OPENING NOTE: PT IN BED ON MONITOR NSR 90. PT ALERT AND AWAKE PT NON VERBAL BUT COMMUNICATES NEEDS. PT WANTED MOUTH SWABBED WITH WATER. PT ON FEEDINGS JEVITY AT 50 ML/HR. AND HAS PICC IN LEFT ARM CLEAN DRY AND INTACT. BLOOD PRESSURE CUFF ON LEFT ARM RIGHT ARM NOT TO BE USED. PT FEET AND HANDS NOTED TO BE SWOLLEN. PT HAS PEG 10 CC RESIDUAL. BED IN LOW POSITION LOCKED CALL LUI NEAR PT. WILL CONTINUE TO MONITOR.
[2018-03-07] MEDS ORDERED: POTASSIUM CHLORIDE 20 MEQ POWDER PACKET GT SCH (08:30)
[2018-03-07] MEDS: BENAZEPRIL HCL 10 MG TABLET GT SCH (08:37)
[2018-03-07] MEDS: AMLODIPINE BESYLATE 5 MG TABLET GT SCH (08:37)
[2018-03-07] MEDS: PANTOPRAZOLE 40 MG/PACK PACK GT SCH (08:37)
[2018-03-07] MEDS: FUROSEMIDE 40 MG/4 ML VIAL IV SCH ×2 (12:11→13:16)
[2018-03-07] MEDS: ASPIRIN 81 MG TAB.CHEW PO SCH (12:14)
[2018-03-07] MEDS: FLUCONAZOLE (100 MG) 100 MG TABLET PO SCH (12:16)
[2018-03-07] MEDS: JEVITY 1.2 CAL 1,000 ML BOTTLE PEG SCH (14:34)
--- NOTE | 2018-03-07 19:08 | NUR ---
CLOSING NOTE: PT REMAINS AWAKE ALERT MORE ANIMATE WHEN DAUGHTER IN ROOM. PT COOPERATIVE PT HAS THREE BOWEL MOVEMENTS C-DIFF SAMPLE SENT TO LAB. PT TO BE HELD ONE MORE DAY PER MD ROMEO. EVALUATIONS SCHEDULED FOR TOMORROW. PT REMAIN STABLE THROUGH OUT SHIFT. ENDORSING CARE TO STRATEGIC INTELLIGENCE OFFICER NURSE.
--- NOTE | 2018-03-07 19:57 | NUR ---
ICU/INTERVENTION ANALYST RECEIVED REPORT FROM DAY NURSE, PT APPEARS TO BE ALERT X SELF.PT HAS 2 LITERS N/C WITH SATURATION 97%. PT HAS G/TUBE WITH JEVITY AT 50 ML/HR. PT HAS NO F/C AND IS DIAPERED. PT HAS A FEW SKIN ISSUES THAT ARE ADDRESSED ON FLOW SHEET. PT WAS TURNED AND REPOSITIONED FOR COMFORT AND CARE. WILL CONTINUE TO MONITOR THIS PT.
--- NOTE | 2018-03-07 20:00 | NUR ---
ICU/LABEL TACKER PT'S OXYGEN VIA N/C WAS INCREASED FROM 2 LITERS TO 4 LITERS. WILL CONTINUE TO MONITOR THIS PT. SATURATION IS 98% NOW WHILE ON 4 LITERS.
--- NOTE | 2018-03-07 20:10 | NUR ---
PT ON 4L NC AWAKE NO SOB. O2 SAT 97%. WILL CONTINUE TO MONITOR.
[2018-03-07] MEDS: ATORVASTATIN 10 MG TABLET GT SCH (20:55)
[2018-03-07] MEDS: ACETAMINOPHEN 650 MG/20.3 ML UDC NG PRN (23:18)
--- NOTE | 2018-03-07 23:35 | NUR ---
ICU/RELAY MOTORMAN PT'S BLOOD PRESSURE INCREASED TO 160'S, PT APPEARS TO BE IN PAIN. TYLENOL 650MG GIVEN VIA G/TUBE. WILL MONITOR THIS PT'S BLOOD PRESSURE.
[2018-03-08] VITALS (22 sets, daily range): BP systolic 120–174; BP diastolic 52–83
[2018-03-08] MEDS: MORPHINE SULFATE INJ 4 MG/ML DISP.SYRIN IV PRN (00:08)
--- NOTE | 2018-03-08 00:30 | NUR ---
ICU/RUBBISH COLLECTOR PT GIVEN MORPHINE 2MG IVP BY CHARGE NURSE DUE TO BLOOD PRESSURE ELEVATED TO 160'S AND 170'S. WILL MONITOR THIS PT AND BP.
--- NOTE | 2018-03-08 03:22 | NUR ---
ICU/GUNNER'S MATE M PT GIVEN AM CARE ALONG WITH ORAL CARE, SATURATION REMAINS AT 95-97% ON 2 LITERS VIA N/C. PT HAD BM, NO NEW SKIN ISSUES AT THIS TIME. PT WAS TURNED AND REPOSITIONED FOR COMFORT AND CARE.
[2018-03-08] MEDS: NITROGLYCERIN 30 GM TUBE TOP SCH ×2 (05:24→17:53)
[2018-03-08] MEDS: METOCLOPRAMIDE HCL 10 MG/2 ML VIAL IV SCH ×3 (05:29→17:56)
--- NOTE | 2018-03-08 06:10 | NUR ---
ICU/SANDER MACHINE PT WAS CLEANED AND REPOSITIONED FOR COMFORT AND CARE. NO ACUTE DISTRESS SEEN AT THIS TIME, PT APPEARS COMFORTABLE. WILL MONITOR THIS PT.
[2018-03-08] MEDS: PANTOPRAZOLE 40 MG/PACK PACK GT SCH (08:37)
[2018-03-08] MEDS: FLUCONAZOLE (100 MG) 100 MG TABLET PO SCH (08:37)
[2018-03-08] MEDS: ASPIRIN 81 MG TAB.CHEW PO SCH (08:37)
[2018-03-08] MEDS: AMLODIPINE BESYLATE 5 MG TABLET GT SCH (08:37)
[2018-03-08] MEDS: BENAZEPRIL HCL 10 MG TABLET GT SCH (08:37)
--- NOTE | 2018-03-08 09:27 | NUR ---
TIME STAMP ASSEMBLER NOTE 0720: Received patient awake, Latvian speaking, A/Ox2, able to follow commands. No respiratory distress noted. On 4LPM of O2 via NC. No c/o discomfort at this time. PIVs intact. GT intact, feeding tolerated, noted with 30mL residuals. Kept HOB elevated. 0800: S/E by Dr. Torres, with order to may transfer to [facility] 11/17 stable. 0900: S/E by ST for swallow eval, able to tolerate fluid per ST. 0910: Called daughter, Madelyn and given update, asking also for consent for NM gastric emptying and for MRI but said wait for her personally to discuss. She will be here in 15minutes.
--- NOTE | 2018-03-08 10:45 | NUR ---
DROP WIRE ALIGNER NOTE 1045: Edinson from [place], spoke with Madelyn and discussed re: the gastric emptying. Also Madelyn filling up MRI questionnaire now. Report given to Shady NAVARRO for PALMER. Transferred to [address] [place] [address] status. Patient remained stable, no any significant changes noted. Kept clean, warm and dry. Needs attended.
[2018-03-08] MEDS: JEVITY 1.2 CAL 1,000 ML BOTTLE PEG SCH (10:58)
--- NOTE | 2018-03-08 11:00 | NUR ---
RN NOTES RECEIVED PT ON BED, A/Ox2, [place], [place]INAM[place] SPEAKING , SUPPORTIVE DAUGHTER AT THE BED SIDE, RESPIRATION EVEN AND UNLABORED, ON 4 L O2 N/C , NO SOB NOTED, ON TELE SR HR IN 80'S , JEVITY AT 50CC/HR RUNNING VIA GT , TOLERATING WELL, NO RESIDUAL NOTED, L UPPER ARM PICC LINE SITE CDI, SR UP x3, CALL LIGHT WITHIN EASY REACH, SR UP X3, BED LOCKED AND IN LOWEST POSITION , WILL CONTINUE TO MONITOR .
--- NOTE | 2018-03-08 11:47 | NUR ---
RT NOTE: DAILY ABGS DC'D PER .
--- NOTE | 2018-03-08 16:00 | NUR ---
RN NOTES BMx1 , PT STABLE , FAMILY AT THE BEDSIDE , CONTINUE TO MONITOR.
--- NOTE | 2018-03-08 18:23 | NUR ---
RN NOTES PT STABLE , L UPPER ARM PICC LINE SITE CDI, TOLERATING TF WELL, SR UP x2 , WILL ENDOSE TO SUPERVISOR POWDERED METAL NURSE FOR PALMER .
--- NOTE | 2018-03-08 19:30 | NUR ---
TELE/RN NOTES: RECEIVED PT. IN BED W/ HOB ELEVATED W/ O2 @ 2.5 LPM VIA N/C SAT. 97%. A/O X 2. SPEAKS WOLOF. DAUGHTER AT BEDSIDE. NO FACIAL GRIMACES OR MOANING NOTED. DENIES ANY C/O PAIN OR SOB AT PRESENT. W/ PEGGY PICC LINE W/ DRESSING INTACT W/ NO S/S OF INFECTION/INFILTRATION NOTED. W/ GTF OF JEVITY 1.2 @ 50CC/HR W/ NO RESIDUAL NOTED. INCONTINENT OF B/B. ON TELE MONITOR W/ SR 83, BBB,PAC,PVC. CALL LIGHT W/ REACH. WILL CONTINUE TO MONITOR.
[2018-03-08] MEDS: ACETAMINOPHEN 650 MG/20.3 ML UDC NG PRN (19:48)
[2018-03-08] MEDS: ATORVASTATIN 10 MG TABLET GT SCH (21:42)
[2018-03-09] VITALS (7 sets, daily range): BP systolic 108–191; BP diastolic 55–82
[2018-03-09] MEDS: METOCLOPRAMIDE HCL 10 MG/2 ML VIAL IV SCH ×4 (00:37→17:17)
[2018-03-09] MEDS: ENOXAPARIN SODIUM 40 MG/0.4 ML DISP.SYRIN SQ SCH (00:38)
[2018-03-09] MEDS: NITROGLYCERIN 30 GM TUBE TOP SCH ×2 (06:04→17:19)
--- NOTE | 2018-03-09 08:20 | NUR ---
SPOOL FIXER NOTES: NO ACUTE CHANGES NOTED DURING THIS SHIFT. REPORT GIVEN TO AM NURSE FOR PALMER.
[2018-03-09] MEDS: BENAZEPRIL HCL 10 MG TABLET GT SCH (08:29)
[2018-03-09] MEDS: AMLODIPINE BESYLATE 5 MG TABLET GT SCH (08:29)
[2018-03-09] MEDS: FLUCONAZOLE (100 MG) 100 MG TABLET PO SCH (08:29)
[2018-03-09] MEDS: ASPIRIN 81 MG TAB.CHEW PO SCH (08:29)
[2018-03-09] MEDS: PANTOPRAZOLE 40 MG/PACK PACK GT SCH (08:30)
[2018-03-09] MEDS: JEVITY 1.2 CAL 1,000 ML BOTTLE PEG SCH (09:54)
--- NOTE | 2018-03-09 18:00 | NUR ---
RN NOTE PT REMAINED STABLE, BUT CO PAIN IN RIGHT FOOT, DR ROMEO NOTIFIED, NO NEW ORDERS AT THIS TIME. WILL GIVE PAIN MED FOR NOW AND ENDORSE TO DIVIDEND DEPOSIT VOUCHER CLERK.
[2018-03-09] MEDS: MORPHINE SULFATE INJ 4 MG/ML DISP.SYRIN IV PRN (19:01)
--- NOTE | 2018-03-09 20:00 | NUR ---
TELE/RN INITIAL NOTES: RECEIVED PT. IN BED W/ HOB ELEVATED W/ O2 @ 2.5 LPM VIA N/C SAT. 97%. A/O X 2. SPEAKS GE[place]GIAN. DAUGHTER AT BEDSIDE. NO FACIAL GRIMACES OR MOANING NOTED. DENIES ANY C/O PAIN OR SOB AT PRESENT. W/ PEGGY PICC LINE W/ DRESSING INTACT W/ NO S/S OF INFECTION/INFILTRATION NOTED. W/ GTF OF JEVITY 1.2 @ 50CC/HR W/ NO RESIDUAL NOTED. INCONTINENT OF B/B. CALL LIGHT W/ REACH. WILL CONTINUE TO MONITOR.
[2018-03-09] MEDS: ATORVASTATIN 10 MG TABLET GT SCH (22:42)
[2018-03-10] VITALS: BP 137/57
[2018-03-10] MEDS: METOCLOPRAMIDE HCL 10 MG/2 ML VIAL IV SCH ×4 (01:05→17:27)
[2018-03-10] MEDS: ENOXAPARIN SODIUM 40 MG/0.4 ML DISP.SYRIN SQ SCH (01:07)
[2018-03-10 04:00] VITALS: BP 126/60
[2018-03-10 04:06] VITALS: BP 126/60
[2018-03-10] MEDS: JEVITY 1.2 CAL 1,000 ML BOTTLE PEG SCH (05:10)
[2018-03-10] MEDS: NITROGLYCERIN 30 GM TUBE TOP SCH ×2 (05:10→18:42)
[2018-03-10] MEDS ORDERED: TRAMADOL HCL 50 MG TABLET PO PRN (05:30)
--- NOTE | 2018-03-10 07:15 | NUR ---
RN OPENING NOTES: RECEIVED PT IN BED W/ HOB ELEVATED W/ O2 @ 2.5 LPM VIA N/C SAT.NO SOB NO DISTRESS NOTED. A/O X 2. SPEAKS AMERICAN.NO C/O PAIN.PEGGY PICC LINE W/ DRESSING INTACT W/ NO S/S OF INFECTION/INFILTRATION NOTED. GTF OF JEVITY 1.2 @ 50CC/HR . INCONTINENT OF B/B. CALL LIGHT W/ REACH.BED LOCKED AND IN LOW POSITION.SAFETY MAINTAINED. WILL CONTINUE TO MONITOR.
[2018-03-10 08:00] VITALS: BP 165/64
[2018-03-10] MEDS: ASPIRIN 81 MG TAB.CHEW PO SCH (08:09)
[2018-03-10] MEDS: AMLODIPINE BESYLATE 5 MG TABLET GT SCH (08:09)
[2018-03-10] MEDS: PANTOPRAZOLE 40 MG/PACK PACK GT SCH (08:09)
[2018-03-10] MEDS: FLUCONAZOLE (100 MG) 100 MG TABLET PO SCH (08:10)
[2018-03-10] MEDS: BENAZEPRIL HCL 10 MG TABLET GT SCH (08:10)
--- NOTE | 2018-03-10 10:00 | NUR ---
RN NOTE PATIENT IS READY FOR DISCHARGE,VIRTUAL ASSISTANT FOR ADVERTISERS TIME 1030 ARRANGED BY PAPER MACHINE OPERATOR AKBAR PER DOCTORS ORDER.BUT PATIENT'S DAUGHTER REFUSED PATIENT TO BE DISCHARGED TODAY.LEFT MESSAGE TO DR ROMEO.
--- NOTE | 2018-03-10 12:00 | NUR ---
RN NOTE SEEN BY ,MADE AWARE ABOUT C XRAY RESULT AND FAMILY REQUEST ABOUT DISCHARGE.ORDERED C XRAY FOR MORNING.
[2018-03-10 16:00] VITALS: BP 154/61
--- NOTE | 2018-03-10 19:00 | NUR ---
RN SHIFT END NOTES: PT IN BED W/ HOB ELEVATED W/ O2 @ 2.5 LPM VIA N/C SAT.NO SOB NO DISTRESS NOTED DURING CARE. A/O X 2. SPEAKS GREENLANDIC.NO C/O PAIN.PEGGY PICC LINE W/ DRESSING INTACT W/ NO S/S OF INFECTION/INFILTRATION NOTED. GTF OF JEVITY 1.2 @ 50CC/HR NO RESIDUAL NOTED . INCONTINENT OF B/B. CALL LIGHT W/ REACH.BED LOCKED AND IN LOW POSITION.SAFETY MAINTAINED. WILL ENDORSE TO PM NURSE FOR PALMER.
[2018-03-10 20:00] VITALS: BP 164/64
--- NOTE | 2018-03-10 20:16 | NUR ---
RN NOTES PATIENT IN BED, ALERT AND AWAKE, NON-VERBAL, NODS HEAD FOR YES, NO SOB, ON 2.5 LPM VIA NC, SPO2 97%, NOT IN APPARENT DISTRESS, RECEIVING FEEDING VIA G-TUBE, NO RESIDUAL, FLUSHES GOOD, G TUBE SITE CLEANSED AND COVERED WITH GAUZE, FEEDING TOLERATED WELL. DAUGHTER REPORTED BILATERAL LOWER EXTREMITIES EDEMA AND WARM TO TOUCH, WITH DOPPLER ORDER, AWAITING TEST, KEPT HOB ELEVATED, KEPT SAFE, CALL LIGHT WITHIN REACH.
[2018-03-10] MEDS: ATORVASTATIN 10 MG TABLET GT SCH (21:05)
[2018-03-11] MEDS: METOCLOPRAMIDE HCL 10 MG/2 ML VIAL IV SCH ×3 (00:04→12:14)
[2018-03-11] MEDS: ENOXAPARIN SODIUM 40 MG/0.4 ML DISP.SYRIN SQ SCH (00:05)
[2018-03-11] MEDS: JEVITY 1.2 CAL 1,000 ML BOTTLE PEG SCH (04:18)
[2018-03-11] MEDS: NITROGLYCERIN 30 GM TUBE TOP SCH (05:26)
--- NOTE | 2018-03-11 06:31 | NUR ---
RN NOTES PATIENT IS ALERT AND AWAKE, NO SOB, TOLERATING 2.5LPM VIA NC, NOT IN APPARENT DISTRESS, NO FACIAL GRIMACING, COMPLAINING OF PAIN TO ROSALIO LOWER EXTREMITIES DURING MOVEMENT AND TURNING. GT FEEDING TOLERATED WELL, NO VOMITING, KEPT HOB ELEVATED, VOIDING WITHOUT DIFFICULTY, ALL DUE MEDICATIONS GIVEN, CALL LIGHT WITHIN REACH.
--- NOTE | 2018-03-11 07:05 | NUR ---
ms rn initial notes Received patient in bed, asleep, head of bed elevated, no SOB or distress noted. on 02 @ 2.5 liters via NC and tolerated well. Alert and oriented x 2, non verbal secondary to s/p stroke. IV intact and patent HL only. GT feeding infusing well Jevity @ 50ml/hr, and tolerated well, no residual noted. No facial grimace noted. Call light with in patient reach, will continue to monitor accordingly.
[2018-03-11 08:00] VITALS: BP_SYST 157; BP_DIAS 55; BP_DIAS 60
[2018-03-11 08:43] VITALS: BP 157/60
[2018-03-11] MEDS: FLUCONAZOLE (100 MG) 100 MG TABLET PO SCH (08:43)
[2018-03-11] MEDS: AMLODIPINE BESYLATE 5 MG TABLET GT SCH (08:43)
[2018-03-11] MEDS: ASPIRIN 81 MG TAB.CHEW PO SCH (08:43)
[2018-03-11] MEDS: BENAZEPRIL HCL 10 MG TABLET GT SCH (08:43)
[2018-03-11] MEDS: PANTOPRAZOLE 40 MG/PACK PACK GT SCH (08:43)
--- NOTE | 2018-03-11 14:15 | NUR ---
ms employment law attorney notes Discharge instructions given to daughter Madelyn and able to understand instructions. Signed discharge paper and belonging list and no items missing. Pictures taken and filed in the patient chart. No complaint of pain or discomfort at this time. PICC line on the PEGGY 2 lumen intact and patent. Per charge nurse to leave it. Flu vaccine not given due to out of season, and pneumonia vaccine refused. Vital signs checked and recorded. 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 MD and charge nurse aware. Report given to Suri NAVARRO at the [facility] rehab.
[2018-03-12] MEDS ORDERED: FUROSEMIDE 20 MG TABLET GT SCH (09:00)
== END 2018-03-11 13:49 | DRG 870 ==
LOC: ER 20:48 → ICU 23:17 → TELE1 03-08 10:37 → MEDSG1 03-09 14:55
PROVIDERS: ADMIT Internal Medicine; ATTEND Internal Medicine
PROC: 5A1955Z Respiratory Ventilation, Greater than 96 Consecutive Hours (ICD-10-PCS; principal; 2018-02-27)
PROC: 0BH17EZ Insertion of Endotracheal Airway into Trachea, Via Natural or Artificial Opening (ICD-10-PCS; 2018-02-27)
PROC: 0DC48ZZ Extirpation of Matter from Esophagogastric Junction, Via Natural or Artificial Opening Endoscopic (ICD-10-PCS; 2018-03-01)
PROC: 02HV33Z Insertion of Infusion Device into Superior Vena Cava, Percutaneous Approach (ICD-10-PCS; 2018-03-02)
PROC: 0DH63UZ Insertion of Feeding Device into Stomach, Percutaneous Approach (ICD-10-PCS; 2018-03-03)
PROC: 3E0G76Z Introduction of Nutritional Substance into Upper GI, Via Natural or Artificial Opening (ICD-10-PCS; 2018-03-03)
DX: A41.9 Sepsis, unspecified organism (principal); I21.4 Non-ST elevation (NSTEMI) myocardial infarction; I46.9 Cardiac arrest, cause unspecified; J69.0 Pneumonitis due to inhalation of food and vomit; J96.01 Acute respiratory failure with hypoxia; G93.40 Encephalopathy, unspecified; K22.2 Esophageal obstruction; E44.1 Mild protein-calorie malnutrition; G81.94 Hemiplegia, unspecified affecting left nondominant side; G81.91 Hemiplegia, unspecified affecting right dominant side; Z92.3 Personal history of irradiation; Z85.3 Personal history of malignant neoplasm of breast; Z90.10 Acquired absence of unspecified breast and nipple; Z86.73 Personal history of transient ischemic attack (TIA), and cerebral infarction without residual deficits; Z79.82 Long term (current) use of aspirin; K22.8 Other specified diseases of esophagus; K22.4 Dyskinesia of esophagus; I10 Essential (primary) hypertension; G25.81 Restless legs syndrome; Z79.899 Other long term (current) drug therapy; G20 Parkinson's disease; H91.90 Unspecified hearing loss, unspecified ear; J39.8 Other specified diseases of upper respiratory tract; K20.9 Esophagitis, unspecified; K29.70 Gastritis, unspecified, without bleeding; T18.120A Food in esophagus causing compression of trachea, initial encounter; X58.XXXA Exposure to other specified factors, initial encounter; Y92.129 Unspecified place in nursing home as the place of occurrence of the external cause; K31.89 Other diseases of stomach and duodenum
CPT/HCPCS: 31720; 36415; 36569; 36600; 43760; 70450-TC; 70490-TC; 70551-TC; 71045-TC; 80048-TC; 80053-TC; 80061-TC; 80076-TC; 82306; 82803-TC; 82962-TC; 83605-TC; 83735-TC; 84100-TC; 84439-TC; 84443-TC; 84484-TC; 85025-TC; 85730-TC; 87040-TC; 87070-TC; 87081-TC; 87086-TC; 88305-TC; 88312-TC; 88313-TC; 88342; 92526; 92611-TC; 92950-TC; 93307-TC; 93880-TC; 93970-TC; 94002-TC; 94003-TC; 94762-TC; 94799-TC; 97110-TC; 97530-TC; 99082-TC; A4216; A4217; A4606; A9563; C1751; C9113; J0360; J0456; J0696; J1100; J1650; J1815; J1940; J2270; J2543; J2704; J2765; J2920; J3490; J7030; J7040; J7050; J7060; Z7610

== ENCOUNTER 2018-03-12 19:52 | Inpatient (IN) | payer MEDICARE, OTHER ==
[~2018-03-12] VITALS: Ht 149.9 cm; Wt 66.2 kg
--- NOTE | 2018-03-12 20:05 | NUR ---
TO BED [facility] C/O FEVER TODAY. PT WAS DISCHARGED FROM HOSPITAL YESTERDAY. PT AAOX3, NO ACUTE DISTRESS NOTED, RESP EVEN AND UNLABORED. RHONCHI HEARD BILATERALLY ON AUSCULTATION. PLACE PT ON CARDIAC MONITORING, CONTINUOUS POX, O2@2L/NC. ER MD AT BEDSIDE TO EVAL PT WITH ORDERS RECEIVED. WILL CARRY OUT ORDERS.
--- NOTE | 2018-03-12 20:05 | NUR ---
Note undone in EDM - 03/12/18 at 2148 by SEB TO BED 9 [facility]IB [facility] C/O FEVER TODAY. PT WAS DISCHARGED FROM HOSPITAL YESTERDAY. PT AAOX1, NO ACUTE DISTRESS NOTED, RESP EVEN AND UNLABORED. RHONCHI HEARD BILATERALLY ON AUSCULTATION. PLACE PT ON CARDIAC MONITORING, CONTINUOUS POX, O2@2L/NC. ER MD AT BEDSIDE TO EVAL PT WITH ORDERS RECEIVED. WILL CARRY OUT ORDERS.
--- NOTE | 2018-03-12 20:15 | NUR ---
PT FAMILY MEMBERS AT BEDSIDE AWARE OF TREATMENT PLAN DISCUSSED BY ER MD.
[2018-03-12] MEDS ORDERED: PIPERACILLIN /TAZOBACTAM 3.375 G VIAL IV ONE (20:27)
[2018-03-12] MEDS ORDERED: VANCOMYCIN 1 GM VIAL ONE (20:27)
[2018-03-12] MEDS: VANCOMYCIN 1 GM in IV D5W 250 ML IV ONE ×2 (20:30→20:51)
[2018-03-12] MEDS ORDERED: ACETAMINOPHEN ES 500 MG TABLET PO ONE (20:30)
[2018-03-12] MEDS ORDERED: PIPERACILLIN /TAZOBACTAM 3.375 G in IV D5W 50 ML IV ONE (20:30)
[2018-03-12 20:57] LABS: BASOPHILS % (AUTO) 0.3 % (0.0-2.0); HEMATOCRIT 33 % (33-45); HEMOGLOBIN 11.4 g/dL (11.5-14.8); LYMPHOCYTES # (AUTO) 1.9 /CMM (0.8-4.8); LYMPHOCYTES % (AUTO) 12.9 % (20.0-44.0); MEAN CORPUSCULAR HGB CONC 35 g/dl (31.0-36.0); MEAN CORPUSCULAR VOLUME 91 fL (82-100); MONOCYTES # (AUTO) 1.2 /CMM (0.1-1.30); NEUTROPHILS # (AUTO) 11.4 /CMM (1.8-8.9); NEUTROPHILS % (AUTO) 76.8 % (43.0-81.0); PLATELET COUNT (AUTO) 379 /CMM (150-450); RDW COEFFICIENT OF VARIATION 13.9 (11.5-15.0); RED BLOOD CELL COUNT(AUTO) 3.62 MIL/uL (4.0-5.2); WHITE BLOOD COUNT (AUTO) 14.8 K/uL (4.3-11.0)
[2018-03-12 20:58] LABS: INR 0.96 (0.85-1.15)
[2018-03-12 21:02] LABS: TROPONIN I 0.101 ng/mL (0.00-0.056)
[2018-03-12 21:03] LABS: APPEARANCE,URINE Clear (CLEAR); BILIRUBIN,URINE Negative (NEGATIVE); BLOOD, URINE Trace-lysed Ery/uL (NEGATIVE); COLOR,URINE Yellow (YELLOW); KETONES,URINE Negative (NEGATIVE); LEUKOCYTE ESTERASE ,URINE Small (NEGATIVE); NITRITE, URINE Negative (NEGATIVE); PROTEIN,URINE 100 mg/dl (NEGATIVE); UGLUCOSE Negative (NEGATIVE); UROBILINOGEN,URINE 0.2 EU/dL (0.2)
[2018-03-12 21:15] LABS: BACTERIA,URINE Moderate /HPF (None Seen); SQUAMOUS EPITHELIAL CELL,UR Few /HPF (None Seen)
--- NOTE | 2018-03-12 21:48 | NUR ---
PT RESTING QUIETLY, NO ACUTE DISTRESS NOTED, RESP EVEN AND UNLABORED. PT FAMILY MEMBERS REMAINS AT BEDSIDE.
[2018-03-12] MEDS ORDERED: ASPIRIN 300 MG/SUPP.RECT RC ONE ×2 (22:00→22:03)
[2018-03-12] MEDS ORDERED: FUROSEMIDE 40 MG/4 ML VIAL IV ONE (22:00)
[2018-03-12] MEDS ORDERED: FUROSEMIDE 40 MG/4 ML VIAL ONE (22:03)
--- NOTE | 2018-03-12 22:04 | NUR ---
DR BOGGS ON THE PHONE WITH DARRION ELIAS MARKETING TRAFFIC MANAGER FOR DR RAMIN ROMEO
[2018-03-12 22:11] LABS: CALCIUM, SERUM 8.2 mg/dL (8.5-10.1); CARBON DIOXIDE 27 mmol/L (21-32); CHLORIDE 113 mmol/L (98-107); CREATININE 0.5 mg/dL (0.6-1.3); GLUCOSE 106 mg/dL (74-106); POTASSIUM 3.5 mmol/L (3.5-5.1); SODIUM SERUM 146 mmol/L (136-145); UREA NITROGEN, BLOOD 34 mg/dL (7-18)
[2018-03-12 22:17] LABS: ALANINE AMINOTRANSFERASE 120 U/L (12-78); ALBUMIN 1.7 g/dL (3.4-5.0); ALKALINE PHOSPHATASE 156 U/L (46-116); ASPARTATE AMINOTRANSFERASE 108 U/L (15-37); BILIRUBIN,DIRECT 0.2 mg/dL (0.0-0.2); BILIRUBIN,TOTAL 0.5 mg/dL (0.2-1.0); TOTAL PROTEIN, SERUM 6.4 g/dL (6.4-8.2)
--- NOTE | 2018-03-12 22:46 | NUR ---
TOTAL PT CARE DONE. WILL TRANSPORT PT TO TELE VIA ACLS PROTOCOL.
[2018-03-12 22:55] VITALS: BP 160/74
--- NOTE | 2018-03-12 22:55 | NUR ---
EQUIPMENT PROCESSOR OPENING NOTES: RECEIVED PT FROM JERMAINE NAVARRO FROM ED. PT IS ON 1LPM VIA NC AND TOLERATING WELL. PT IS A/OX1-2 AND IS ABLE TO MOUTH WORDS. PER DTR, SHE IS ABLE TO SPEAK BUT SHE IS S/P EXTUBATED. BILATERAL LEGS/FEET SWOLLEN AND ELEVATED WITH PILLOW. PT TO BE PLACED ON TELE BOX. PT HAS JASON CATH AND IS ATTACHED TO DRAINAGE BAG WITH YELLOW URINE DRAINING. PT HAS PEGGY PICC LINE AND HAS BEEN FLUSHED. PICC IS PATENT AND INTACT. CURRENTLY H/L. PT HAS G TUBE AND HAS BEEN ASPIRATED, FLUSHED, AND AUSCULTATED. CURRENTLY CLAMPED. BED ALARM ACTIVATED. CALL LIGHT WITHIN PT'S REACH. BED KEPT IN LOW ,LOCKED POSITION, AND SIDE RAILS X 2UP. BED IN SEMI-LOPEZ'S POSITION. WILL CONTINUE TO MONITOR PT. Addendum: 03/13/18 at 0325 by KENRICK GARCIAS RN PT ALSO HAS NITRO PATCH ON CHEST.
--- NOTE | 2018-03-12 23:52 | NUR ---
EDUCATIONAL ADMINISTRATION TEACHER NOTES: SPOKE WITH DEVELOPMENT TECHNICAL LEAD FERNY DUBON. GOT ADMITTING ORDERS. BLOOD CULTURE X 2, SPUTUM CULTURE, UA CNC LATHE MACHINIST, CONTINUE ALL MEDS FROM CARE HOME STARTING TOMORROW. NO IV FLUIDS, KEEP H/L. LASIX 20MG IV START TOMORROW Q12HR. AWARE THAT SHE GOT LASIX IN ER. KCL 20 DAILY VIA G TUBE. CBC AND CHEM 20 IN AM. ROCEPHIN 1G QDAILY IVPB. PRN TYLENOL 650MG Q4 VIA G TUBE FOR TEMP 100.5 Addendum: 03/13/18 at 0112 by KENRICK GARCIAS RN ua c & s
[2018-03-13] VITALS (7 sets, daily range): BP systolic 132–160; BP diastolic 53–83
[2018-03-13] MEDS ORDERED: HYDROCODONE/APAP 5/325MG 1 EACH TABLET GT PRN
[2018-03-13] MEDS ORDERED: ONDANSETRON HCL 4 MG/5 ML SOLUTION GT PRN
[2018-03-13] MEDS ORDERED: ALBUTEROL FS 2.5 MG/0.5 ML VIAL.NEB NEB PRN
[2018-03-13] MEDS ORDERED: IPRATROPIUM NEB FS 0.5 MG/2.5 ML AMPUL.NEB NEB PRN
--- NOTE | 2018-03-13 00:17 | NUR ---
CONICAL MIXER NOTES: SPOKE WITH CYBER POLICY AND STRATEGY PLANNER FERNY DUBON AND THE ADMITTING DX IS ACUTE CHF EXAB ; ALSO, OKAY TO START FEEDING TONIGHT ; ALSO GOT ORDER FOR CLONIDINE 0.1MG Q4HR PRN FOR SBP > 160 ; CYBER POLICY AND STRATEGY PLANNER AWARE OF ELEVATED BP.
[2018-03-13] MEDS ORDERED: CLONIDINE HCL 0.1 MG TABLET GT PRN (00:30)
[2018-03-13] MEDS ORDERED: CEFTRIAXONE 1 G VIAL ONE (00:39)
[2018-03-13] MEDS: CEFTRIAXONE 1 G in IV D5W 50 ML IV SCH (00:49)
[2018-03-13] MEDS: JEVITY 1.2 CAL 1,000 ML BOTTLE GT PRN (01:19)
--- NOTE | 2018-03-13 02:27 | NUR ---
EXCELLENCE MANAGER NOTES: CALLED [facility]. SPOKE WITH RAMON STARR SUPERVISOR FILTRATION. PER RO, PT RECEIVED LOVENOX 40MG SQ AT 03/12/18 AT 0900 IN THE MORNING.
[2018-03-13] MEDS: ACETAMINOPHEN 650 MG/20.3 ML UDC GT PRN (05:07)
[2018-03-13 06:17] LABS: BASOPHILS % (AUTO) 0.2 % (0.0-2.0); EOSINOPHILS % (AUTO) 2.3 % (0.0-6.0); HEMATOCRIT 33 % (33-45); HEMOGLOBIN 11.1 g/dL (11.5-14.8); LYMPHOCYTES # (AUTO) 1.2 /CMM (0.8-4.8); LYMPHOCYTES % (AUTO) 8.8 % (20.0-44.0); MEAN CORPUSCULAR HGB CONC 34 g/dl (31.0-36.0); MEAN CORPUSCULAR VOLUME 92 fL (82-100); MONOCYTES % (AUTO) 7.5 % (2.0-12.0); NEUTROPHILS # (AUTO) 11.3 /CMM (1.8-8.9); NEUTROPHILS % (AUTO) 81.2 % (43.0-81.0); PLATELET COUNT (AUTO) 364 /CMM (150-450); RDW COEFFICIENT OF VARIATION 14.1 (11.5-15.0); RED BLOOD CELL COUNT(AUTO) 3.58 MIL/uL (4.0-5.2); WHITE BLOOD COUNT (AUTO) 13.9 K/uL (4.3-11.0)
--- NOTE | 2018-03-13 06:24 | NUR ---
GUNITE NOZZLE OPERATOR CLOSING NOTES: ALL NEEDS WERE ATTENDED AND ANTICIPATED FOR. PT ON 1LPM VIA NC. PT KEPT CLEAN, DRY, AND COMFORTABLE. PT TURNED AND REPOSITIONED Q 2HRS. LEFT ARM AND BILATERAL FEET ELEVATED. PT HAS JASON CATH AND IS ATTACHED TO DRAINAGE BAG WITH YELLOW URINE DRAINING. OUTPUT WAS 2900ML. PT HAS PEGGY PICC LINE AND IS PATENT AND INTACT. HAS BEEN FLUSHED. CURRENTLY S/L. PT ON [place] AIR MATTRESS. PT ON TELE BOX AND READING SHOWS SR IN THE 60S WITH OCCASIONAL PACS. PT ASLEEP AT THIS TIME AND RESTING COMFORTABLY. PT HAS G TUBE. NO RESIDUAL NOTED. PT ON JEVITY 1.2 AT 40ML/HR. BED ALARM ACTIVATED. PT KEPT IN SEMI-LOPEZ'S POSITION. CALL LIGHT WITHIN PT'S REACH. BED KEPT IN LOW, LOCKED POSITION, AND SIDE RAILS X 2UP. WILL ENDORSE TO AM NURSE FOR PALMER.
[2018-03-13 06:35] LABS: ALANINE AMINOTRANSFERASE 104 U/L (12-78); ALBUMIN 1.6 g/dL (3.4-5.0); ALKALINE PHOSPHATASE 155 U/L (46-116); ASPARTATE AMINOTRANSFERASE 82 U/L (15-37); BILIRUBIN,TOTAL 0.6 mg/dL (0.2-1.0); CALCIUM, SERUM 8.2 mg/dL (8.5-10.1); CARBON DIOXIDE 31 mmol/L (21-32); CHLORIDE 110 mmol/L (98-107); CREATININE 0.6 mg/dL (0.6-1.3); GLUCOSE 144 mg/dL (74-106); POTASSIUM 3.2 mmol/L (3.5-5.1); SODIUM SERUM 148 mmol/L (136-145); TOTAL PROTEIN, SERUM 6.2 g/dL (6.4-8.2); UREA NITROGEN, BLOOD 29 mg/dL (7-18)
[2018-03-13 06:49] LABS: TROPONIN I 0.099 ng/mL (0.00-0.056)
--- NOTE | 2018-03-13 07:00 | NUR ---
HEAD CD REACTOR OPERATOR INITIAL NOTES: RECEIVED PATIENT ON BED, ASLEEP, WITH HEAD OF BED ELEVATED, ON SUSAN MATTRESS. BILATERAL EDEMA ON FEET/ ANKLES AND LEFT HAND NOTED, ELEVATED. NO SOB OR ACUTE DISTRESS. WITH O2 AT 1L VIA NC, SATURATING AT 99%. JASON CATH IN PLACE, WITH YELLOW URINE DRAINING. PICC LINE ON LEFT UPPER ARM, PATENT AND INTACT. ON TELE MONITOR, SR 60. PATIENT. PATIENT ON JEVITY 1.2 AT 40ML/HR. CALL LUI WITHIN REACH. BED IN LOW/LOCKED POSITION. PATIENT IN STABLE CONDITION PER LAPPING MACHINE SET UP OPERATOR RN.
[2018-03-13] MEDS: POTASSIUM CHLORIDE 20 MEQ POWDER PACKET GT SCH (08:43)
[2018-03-13] MEDS: FLUCONAZOLE (100 MG) 100 MG TABLET GT SCH (08:43)
[2018-03-13] MEDS: ASPIRIN 81 MG TAB.CHEW GT SCH (08:43)
[2018-03-13] MEDS: PANTOPRAZOLE 40 MG/PACK PACK GT SCH (08:43)
[2018-03-13] MEDS: ENOXAPARIN SODIUM 40 MG/0.4 ML DISP.SYRIN SQ SCH (08:45)
[2018-03-13] MEDS: BENAZEPRIL HCL 10 MG TABLET GT SCH (09:00)
[2018-03-13] MEDS: NITROGLYCERIN PACKET 1 GM PACKET TOP SCH ×2 (09:00→21:42)
[2018-03-13] MEDS ORDERED: FUROSEMIDE 20 MG/2 ML VIAL IV SCH (09:00)
[2018-03-13] MEDS: AMLODIPINE BESYLATE 5 MG TABLET GT SCH (09:00)
--- NOTE | 2018-03-13 09:45 | NUR ---
LIBRARY ASSOCIATE NOTES BLOOD PRESSURE: 132/ 53, PULSE RATE: 58. GINA, MY PRECEPTOR, INFORMED DR. ROMEO. BENAZEPRIL, AMLODIPINE, LASIX AND NITROGLYCERIN WITHHELD PER MD. MEDICATIONS RETURNED.
--- NOTE | 2018-03-13 11:26 | NUR ---
WOUND CARE CONSULT: PT PRESENTS WITH DEEP TISSUE INJURY TO SACRUM WHICH IS INTACT, PRESENT ON ADMISSION. RECOMMENDATIONS MADE FOR WOUND CARE AND SKIN PROTECTION. DISCUSSED WITH NURSING STAFF. [facility]. WILL SEE PRN. Jake Soto IN AGREEMENT WITH PLAN OF CARE. Addendum: 03/13/18 at 1127 by LAMAR MCCRARY WNDNU Amended: Links added.
[2018-03-13] MEDS ORDERED: Z GUARD REMEDY 2 OZ OINT TP PRN (11:30)
[2018-03-13] MEDS ORDERED: POTASSIUM CHLORIDE 20 MEQ POWDER PACKET GT SCH (12:00)
[2018-03-13] MEDS ORDERED: POTASSIUM CHLORIDE 20 MEQ TAB.PRT.SR PO SCH (12:00)
[2018-03-13] MEDS: FUROSEMIDE 20 MG/2 ML VIAL IV SCH (13:27)
[2018-03-13] MEDS: Z GUARD REMEDY 2 OZ OINT TP SCH (13:29)
--- NOTE | 2018-03-13 19:16 | NUR ---
supervisor telephone clerks closing notes All needs provided, attended, and anticipated. Patient is in stable condition. Endorsed to next shift RN to continue care. Call light with in patient reach. On tele monitor SR heart rate of 74.
--- NOTE | 2018-03-13 19:30 | NUR ---
TELE/RN RECEIVE PATIENT AWAKE, ALERT, NON VERBAL, COMFORTABLE, NO SIGNS OF DISTRESS NOTED, GT FEEDING INFUSING, NO RESIDUAL NOTED, HOB ELEVATED. WILL MONITOR.
[2018-03-13] MEDS: ATORVASTATIN 10 MG TABLET GT SCH (21:42)
--- NOTE | 2018-03-13 22:31 | NUR ---
TELE/RN RECEIVED A CALL AT ABOUT [phone] FROM [facility] INFORMING ME ABOUT BLOOD CULTURE PRELIMINARY RESULT ON AEROBIC BOTTLE OF GRAM POSITIVE [place] IN CLUSTERS. CALLED DR. ROMEO, LEFT MESSAGE. WILL WAIT FOR CALL BACK.
--- NOTE | 2018-03-13 22:34 | NUR ---
TELE/RN DR. ROMEO CALLED BACK, NO ORDERS RECEIVED. PER DR. ROMEO "DON'T WORRY IT MIGHT BE CONTAMINATED.".
[2018-03-14] VITALS: BP 135/67
[2018-03-14] MEDS: CEFTRIAXONE 1 G in IV D5W 50 ML IV SCH (01:19)
--- NOTE | 2018-03-14 02:10 | NUR ---
TELE/RN NO URINE OUTPUT YET SINCE 1899, BLADDER SCAN DONE, 999 MLS. CALLED AND SPOKE TO DR. ROMEO, WITH ORDERS TO DO STRAIGHT CATH NOW AND BLADDER SCAN Q 6 HOURS AND STRAIGHT CATH FOR URINE MORE THAN 450 MLS RECEIVED. CARRIED OUT.
[2018-03-14 04:00] VITALS: BP 125/57
[2018-03-14] MEDS: JEVITY 1.2 CAL 1,000 ML BOTTLE GT PRN (04:25)
--- NOTE | 2018-03-14 06:30 | NUR ---
TELE/RN PATIENT IS SLEEPING AT THIS TIME, COMFORTABLE, NO DISTRESS NOTED, ALL NEEDS ATTENDED AT THIS TIME. WILL CONTINUE TO MONITOR.
[2018-03-14 07:00] LABS: CALCIUM, SERUM 8.2 mg/dL (8.5-10.1); CARBON DIOXIDE 31 mmol/L (21-32); CHLORIDE 111 mmol/L (98-107); CREATININE 0.6 mg/dL (0.6-1.3); GLUCOSE 149 mg/dL (74-106); POTASSIUM 3.4 mmol/L (3.5-5.1); SODIUM SERUM 149 mmol/L (136-145); UREA NITROGEN, BLOOD 34 mg/dL (7-18)
--- NOTE | 2018-03-14 07:20 | NUR ---
Tele/RN - Assessment Patient awake, alert to self, afebrile, no s/s of pain, not in any form of distress, tele shows SR. Per endorsement, bladder scan urine volume was 999 ml at 02:00 am, explained to patient that I will perform bladder scan around 08:00 am to check residual amount and will do straight cath if >450 ml. GTF Jevity at 50 ml/hr tolerating it well, no residual seen. All needs anticipated and met. Will continue with current medical management.
[2018-03-14 08:00] VITALS: BP 123/60
[2018-03-14] MEDS: NITROGLYCERIN PACKET 1 GM PACKET TOP SCH (08:17)
[2018-03-14] MEDS: ENOXAPARIN SODIUM 40 MG/0.4 ML DISP.SYRIN SQ SCH (08:17)
[2018-03-14] MEDS: FUROSEMIDE 20 MG/2 ML VIAL IV SCH (08:18)
[2018-03-14] MEDS: FLUCONAZOLE (100 MG) 100 MG TABLET GT SCH (08:18)
[2018-03-14] MEDS: ASPIRIN 81 MG TAB.CHEW GT SCH (08:18)
[2018-03-14] MEDS: BENAZEPRIL HCL 10 MG TABLET GT SCH (08:18)
[2018-03-14] MEDS: PANTOPRAZOLE 40 MG/PACK PACK GT SCH (08:18)
[2018-03-14] MEDS: AMLODIPINE BESYLATE 5 MG TABLET GT SCH (08:18)
[2018-03-14] MEDS: POTASSIUM CHLORIDE 20 MEQ POWDER PACKET GT SCH (08:18)
[2018-03-14] MEDS: Z GUARD REMEDY 2 OZ OINT TP SCH (08:20)
--- NOTE | 2018-03-14 10:30 | NUR ---
Tele/RN - Bladder scan 10:00 - Bladder scan done, urine volume >920 ml, performed straight cath as ordered, emptied 500 ml initially. 10:30 - Total urine drained was 1000 ml. Daughter Madelyn at bedside updated on plan of care. Will continue to monitor closely.
[2018-03-14 12:00] VITALS: BP 141/58
[2018-03-14] MEDS ORDERED: POTASSIUM CHLORIDE 20 MEQ POWDER PACKET GT SCH (12:00)
--- NOTE | 2018-03-14 12:30 | NUR ---
Tele/RN - Md Suyapa Leonard at bedside made aware that patient still with episodes of urinary retention. Md with order to insert phillips catheter for urinary retention. Daughter at bedside aware.
[2018-03-14 16:00] VITALS: BP 139/60
--- NOTE | 2018-03-14 18:30 | NUR ---
M/S RN - Notes Patient remain afebrile, continue on oxygen 1lpm via NC, phillips catheter draining clear yellow urine. All needs attended and met. Will continue with current medical management.
--- NOTE | 2018-03-14 19:00 | NUR ---
RN OPENING NOTES PT AWAKE AND ALERT TO SELF. FAMILY AT BEDSIDE. NO APPARENT S/S OF DISTRESS OR SOB AT THIS TIME. JASON INTACT AND DRAINING WELL. G TUBE FEEDING RUNNING 50 ML/HR TOLERATING WELL. PT HAS A LEFT UPPER ARM PICC LINE, 1 LUMEN INTACT AND PATENT. SAFETY PRECAUTIONS IN PLACE, BED IN LOWEST LOCKED POSITION, X2 SIDE RAILS UP, CALL LIGHT WITHIN REACH. WILL CONTINUE TO MONITOR.
[2018-03-14] MEDS: ACETAMINOPHEN 650 MG/20.3 ML UDC GT PRN (19:55)
[2018-03-14 20:00] VITALS: BP 153/58
[2018-03-14] MEDS: ATORVASTATIN 10 MG TABLET GT SCH (21:07)
[2018-03-15] MEDS: CEFTRIAXONE 1 G in IV D5W 50 ML IV SCH (01:36)
--- NOTE | 2018-03-15 06:43 | NUR ---
RN CLOSING NOTES PT RESTING IN BED. NO APPARENT S/S OF DISTRESS, PAIN OR SOB OVERNIGHT. JASON INTACT AND DRAINING WELL. G TUBE FEEDING RUNNING 50 ML/HR TOLERATING WELL. PT HAS A LEFT UPPER ARM PICC LINE, 1 LUMEN INTACT AND PATENT. SAFETY PRECAUTIONS IN PLACE, BED IN LOWEST LOCKED POSITION, X2 SIDE RAILS UP, CALL LIGHT WITHIN REACH. WILL ENDORSE TO DAY SHIFT NURSE FOR CONTINUITY OF CARE.
[2018-03-15 07:00] LABS: CALCIUM, SERUM 8.5 mg/dL (8.5-10.1); CARBON DIOXIDE 29 mmol/L (21-32); CHLORIDE 113 mmol/L (98-107); CREATININE 0.5 mg/dL (0.6-1.3); GLUCOSE 144 mg/dL (74-106); POTASSIUM 3.9 mmol/L (3.5-5.1); SODIUM SERUM 149 mmol/L (136-145); UREA NITROGEN, BLOOD 34 mg/dL (7-18)
--- NOTE | 2018-03-15 07:30 | NUR ---
RN MS NOTES PT IN BED, AWAKE, ALERT TO SELF, NO SIGN OF PAIN, RESPIRATIONS NORMAL, CALL LIGHT WITHIN REACH, GT FEEDING INFUSING WELL, KEPT HOB ELEVATED, F/C DRAINING WELL, KEPT COMFORTABLE.
[2018-03-15 08:00] VITALS: BP 133/71
[2018-03-15] MEDS: ENOXAPARIN SODIUM 40 MG/0.4 ML DISP.SYRIN SQ SCH (08:40)
[2018-03-15] MEDS: AMLODIPINE BESYLATE 5 MG TABLET GT SCH (08:41)
[2018-03-15] MEDS: FLUCONAZOLE (100 MG) 100 MG TABLET GT SCH (08:41)
[2018-03-15] MEDS: PANTOPRAZOLE 40 MG/PACK PACK GT SCH (08:41)
[2018-03-15] MEDS: POTASSIUM CHLORIDE 20 MEQ POWDER PACKET GT SCH (08:41)
[2018-03-15] MEDS: ASPIRIN 81 MG TAB.CHEW GT SCH (08:41)
[2018-03-15] MEDS: FUROSEMIDE 20 MG/2 ML VIAL IV SCH (08:42)
[2018-03-15] MEDS: Z GUARD REMEDY 2 OZ OINT TP SCH (08:43)
[2018-03-15] MEDS: JEVITY 1.2 CAL 1,000 ML BOTTLE GT PRN (08:44)
--- NOTE | 2018-03-15 12:00 | NUR ---
RN MS NOTES Patient in bed awake with family at bedside. No complaints of pain or discomfort. No SOB noted. Breathing even and unlabored. On GT feeding - tolerating well. Head of the bed elevated. F/C intact and draining well. Turned and repositioned every 2 hours; kept comfortable. Family aware and agrees to plan of care.
[2018-03-15] MEDS: ACETAMINOPHEN 650 MG/20.3 ML UDC GT PRN (15:11)
[2018-03-15 16:00] VITALS: BP 129/51
--- NOTE | 2018-03-15 18:29 | NUR ---
RN CLOSING NOTES PATIENT IN BED, AWAKE. IN STABLE CONDITION. BREATHING EVEN AND UNLABORED. NO SOB. JASON INTACT AND PATENT - DRAINING WELL. ON G-TUBE FEEDING: JEVITY 50ML/HR - TOLERATING WELL. WITH NEW ORDERS FOR FLUSH 150ML H2O EVERY 6 HOURS. DAUGHTER REQUESTED FOR LAXATIVES. MD AWARE WITH AN ORDER FOR SENEKOT 2 TABS AT BEDTIME. PATIENT ALSO COMPLAINED OF PAIN IN ANUS AREA. MD AWARE WITH ORDER FOR ANUSOL CREAM THREE TIMES A DAY. SAFETY PRECAUTIONS RENDERED. X2 SIDE RAILS UP. CALL LIGHT WITHIN REACH. FAMILY AT BEDSIDE - AWARE AND AGREES TO PLAN OF CARE. WILL ENDORSE TO ONCOMING RN FOR CONTINUITY OF CARE.
--- NOTE | 2018-03-15 19:05 | NUR ---
MS/CANNERY WORKER; RECEIVED PT'S REPORTS FROM THE DAY SHIFT NURSE FOR CONTINUITY OF CARE.
--- NOTE | 2018-03-15 19:20 | NUR ---
MS/POURER BUGGY LADLE; RECEIVED PT IN BED WITH PT'S DAUGHTER AND SON - IN - LAW AT THE BEDSIDE . AN GAS PUMPING STATION HELPER IN AT THIS TIME TALKING TO THE DAUGHTER AND SON - IN - LAW.
--- NOTE | 2018-03-15 19:50 | NUR ---
MS/PRESSURE TANK OPERATOR; AT THIS TIME PT IN BED AWAKE AND VERBALLY RESPONSIVE. GT FEEDING ON PROGRESS. PICC LINE INTACT ON PEGGY . CONTINUE TO MONITOR. BED ON LOWER POSITION AND LOCKED FOR SAFETY. SIDE RAILS ARE UP X 3 FOR SAFETY. CONTINUE TO MONITOR. CALL LIGHT WITHIN REACH.
[2018-03-15 20:00] VITALS: BP 147/83
[2018-03-15] MEDS: HYDROCORTISONE CR 30 GM TUBE RC SCH (20:47)
[2018-03-15] MEDS: ATORVASTATIN 10 MG TABLET GT SCH (22:24)
[2018-03-15] MEDS: SENNOSIDES 8.6 MG TABLET GT SCH (22:25)
[2018-03-16] MEDS: CEFTRIAXONE 1 G in IV D5W 50 ML IV SCH (00:55)
[2018-03-16] MEDS: JEVITY 1.2 CAL 1,000 ML BOTTLE GT PRN ×2 (01:18→16:58)
--- NOTE | 2018-03-16 06:51 | NUR ---
MS/WAITER/WAITRESS CLUB; SLEPT AT GOOD INTERVALS. FC INTACT WITH 1600 ML YELLOW URINE. BM X 2 MODERATE AMOUNT SOFT BROWN. MORNING CARE DONE BY THE GAME TECHNICIAN SO WITH ORAL CARE. TURNED AND REPOSITIONED. GT FEEDING ONPROGRESS. WILL CONTINUE TO MONITOR. WILL ENDORSE TO THE DAY SHIFT NURSE.
--- NOTE | 2018-03-16 07:48 | NUR ---
RN MS OPENING NOTES PATIENT IN BED ASLEEP. EASILY AROUSABLE BY NAME, LIGHT TOUCH. NO SIGNS OF PAIN. NO SOB. BREATHING EVEN AND UNLABORED. GT FEEDING INFUSING AND TOLERATING WELL. HEAD OF THE BED ELEVATED. F/C INTACT AND DRAINING WELL. KEPT COMFORTABLE. CALL LIGHT WITHIN REACH.
[2018-03-16 08:00] VITALS: BP 142/52
[2018-03-16] MEDS: AMLODIPINE BESYLATE 5 MG TABLET GT SCH (08:33)
[2018-03-16] MEDS: POTASSIUM CHLORIDE 20 MEQ POWDER PACKET GT SCH (08:33)
[2018-03-16] MEDS: FLUCONAZOLE (100 MG) 100 MG TABLET GT SCH (08:34)
[2018-03-16] MEDS: FUROSEMIDE 20 MG/2 ML VIAL IV SCH (08:34)
[2018-03-16] MEDS: ASPIRIN 81 MG TAB.CHEW GT SCH (08:34)
[2018-03-16] MEDS: ENOXAPARIN SODIUM 40 MG/0.4 ML DISP.SYRIN SQ SCH (08:35)
[2018-03-16] MEDS: HYDROCORTISONE CR 30 GM TUBE RC SCH ×3 (08:37→17:03)
[2018-03-16] MEDS: Z GUARD REMEDY 2 OZ OINT TP SCH (08:37)
[2018-03-16] MEDS: PANTOPRAZOLE 40 MG/PACK PACK GT SCH (08:37)
[2018-03-16 16:00] VITALS: BP 144/55
[2018-03-16] MEDS: ACETAMINOPHEN 650 MG/20.3 ML UDC GT PRN ×2 (16:58→22:32)
--- NOTE | 2018-03-16 18:33 | NUR ---
RN MS CLOSING NOTES PATIENT IN BED, AWAKE. IN STABLE CONDITION. BREATHING EVEN AND UNLABORED. NO SOB. JASON INTACT AND PATENT - DRAINING WELL. ON G-TUBE FEEDING: JEVITY 60ML/HR - TOLERATING WELL WITH FLUSH 150ML H2O EVERY 6 HOURS. KEPT CLEAN, DRY, AND COMFORTABLE. ALL SKIN TREATMENTS GIVEN ORDERED. SAFETY PRECAUTIONS RENDERED. X2 SIDE RAILS UP. CALL LIGHT WITHIN REACH. DAUGHTER AT BEDSIDE - AWARE AND AGREES TO PLAN OF CARE. WILL ENDORSE TO ONCOMING RN FOR CONTINUITY OF CARE
--- NOTE | 2018-03-16 19:30 | NUR ---
MS RN OPENING NOTES: PATIENT IN BED, AOX1, ON ROOM AIR, BREATHING EVEN AND UNLABORED. BREATH SOUNDS CLEAR TO AUSCULTATION. APPEARS CALM AND IN NO DISTRESS, DAUGHTER AT BEDSIDE TO HELP WITH TRANSLATION. ON GTUBE FEEDING OF JEVITY RUNNING AT 60 ML/HR, PATIENT TOLERATING FEEDING WELL WITH NO RESIDUAL NOTED AT THIS TIME. JASON CATHETER IN PLACE DRAINING CLEAR YELLOW URINE. PICC LINE OVER PEGGY, WITH RED PORT PATENT TO FLUSH. PROVIDED FOR COMFORT AND SAFETY. BED IN LOWEST AND LOCKED POSITION, HOB ELEVATED. SIDERAILS UP X 3, CALL LIGHT WITHIN REACH. WILL CONT TO MONITOR.
[2018-03-16 20:00] VITALS: BP 133/66
[2018-03-16] MEDS: ATORVASTATIN 10 MG TABLET GT SCH (22:22)
[2018-03-16] MEDS: SENNOSIDES 8.6 MG TABLET GT SCH (22:22)
--- NOTE | 2018-03-16 23:37 | NUR ---
RN NOTES: PATIENT COMPLAINED OF PAIN OVER HER LEFT LEG WHEN ATTEMPTING TO REPOSITION. GAVE TYLENOL 650 MG PER GT. POSITIONED FOR COMFORT. WILL CONT TO MONITOR.
[2018-03-17] MEDS: CEFTRIAXONE 1 G in IV D5W 50 ML IV SCH (01:02)
[2018-03-17 06:23] LABS: BASOPHILS % (AUTO) 0.3 % (0.0-2.0); EOSINOPHILS % (AUTO) 2.8 % (0.0-6.0); HEMATOCRIT 31 % (33-45); HEMOGLOBIN 10.4 g/dL (11.5-14.8); LYMPHOCYTES # (AUTO) 1.6 /CMM (0.8-4.8); LYMPHOCYTES % (AUTO) 14.5 % (20.0-44.0); MEAN CORPUSCULAR HGB CONC 34 g/dl (31.0-36.0); MEAN CORPUSCULAR VOLUME 91 fL (82-100); MONOCYTES # (AUTO) 0.9 /CMM (0.1-1.30); MONOCYTES % (AUTO) 7.9 % (2.0-12.0); NEUTROPHILS # (AUTO) 8.5 /CMM (1.8-8.9); NEUTROPHILS % (AUTO) 74.5 % (43.0-81.0); PLATELET COUNT (AUTO) 413 /CMM (150-450); RDW COEFFICIENT OF VARIATION 14.3 (11.5-15.0); RED BLOOD CELL COUNT(AUTO) 3.39 MIL/uL (4.0-5.2); WHITE BLOOD COUNT (AUTO) 11.4 K/uL (4.3-11.0)
--- NOTE | 2018-03-17 06:39 | NUR ---
MS RN CLOSING NOTES: PATIENT IN BED, AOX1, ON ROOM AIR, BREATHING EVEN AND UNLABORED. APPEARS CALM AND IN NO DISTRESS. JASON CATHETER IN PLACE DRAINING DARK YELLOW URINE. ON GT FEEDING OF JEVITY RUNNING AT 60 ML/HR, PATIENT TOLERATING FEEDING WELL WITH MINIMAL RESIDUALS NOTED. DUE MEDS GIVEN. PROVIDED FOR COMFORT AND SAFETY. MORNING CARE RENDERED. TURNED AND REPOSITIONED Q 2 HRS. NO ACUTE CHANGE IN CONDITION NOTED THROUGH SHIFT. WILL ENDORSE TO AM RN FOR PALMER.
[2018-03-17 06:43] LABS: CALCIUM, SERUM 8.2 mg/dL (8.5-10.1); CARBON DIOXIDE 30 mmol/L (21-32); CHLORIDE 112 mmol/L (98-107); CREATININE 0.5 mg/dL (0.6-1.3); GLUCOSE 161 mg/dL (74-106); POTASSIUM 3.6 mmol/L (3.5-5.1); SODIUM SERUM 149 mmol/L (136-145); UREA NITROGEN, BLOOD 39 mg/dL (7-18)
--- NOTE | 2018-03-17 07:15 | NUR ---
MS/RN OPENING NOTE PATIENT ALERT AND ORIENTED X1. PATIENT IS PROVIDED REDIRECTION AND REORIENTATION. DENIES PAIN. RESPIRATION REGULAR AND UNLABORED. DENIES SOB. PATIENT IN ROOM AIR. JASON CATH DRAINING FREELY YELLOW COLOR URINE. NO BLADDER DISTENSION NOTED. GT FEEDING ON. BED LOW AND LOCKED. SIDE RAILS UP X3. CALL LIGHT WITHIN REACH. WILL CONTINUE TO MONITOR.
[2018-03-17 08:00] VITALS: BP 126/62
[2018-03-17] MEDS: ASPIRIN 81 MG TAB.CHEW GT SCH (08:19)
[2018-03-17] MEDS: FLUCONAZOLE (100 MG) 100 MG TABLET GT SCH (08:19)
[2018-03-17] MEDS: PANTOPRAZOLE 40 MG/PACK PACK GT SCH (08:19)
[2018-03-17] MEDS: POTASSIUM CHLORIDE 20 MEQ POWDER PACKET GT SCH (08:19)
[2018-03-17] MEDS: ENOXAPARIN SODIUM 40 MG/0.4 ML DISP.SYRIN SQ SCH (08:20)
[2018-03-17] MEDS: FUROSEMIDE 20 MG/2 ML VIAL IV SCH (08:20)
[2018-03-17] MEDS: AMLODIPINE BESYLATE 5 MG TABLET GT SCH (08:20)
[2018-03-17] MEDS: HYDROCORTISONE CR 30 GM TUBE RC SCH ×3 (08:22→18:58)
--- NOTE | 2018-03-17 08:40 | NUR ---
MS/RN NOTE GT PLACEMENT CHECK. SWISHING SOUND HEARD WHEN AIR IS PUSHED AND NO RESIDUAL ASPIRATED. MORNING MEDICATIONS GIVEN ORDERED VIA GT AND GRAVITY. NO COMPLICATIONS NOTED.
[2018-03-17 13:08] LABS: BAND % (MANUAL) 2 % (0.0-5.0); EOSINOPHILS % (MANUAL) 4 % (0-4); LYMPHOCYTES % (MANUAL) 13 % (16-48); MONOCYTES % (MANUAL) 8 % (0-11.0); NEUTROPHILS % (MANUAL) 73 (42-76)
[2018-03-17] MEDS: JEVITY 1.2 CAL 1,000 ML BOTTLE GT PRN (13:43)
[2018-03-17 16:00] VITALS: BP 146/75
--- NOTE | 2018-03-17 16:20 | NUR ---
MS/RN NOTE PER DR ROMEO BUSINESS MANAGEMENT ASSOCIATE TO ARRANGE PLACEMENT IN [facility] FOR MONDAY. SRI WEBBER IS MADE AWARE. DR ROMEO REFUSED TO GIVEN ORDER FO ECG AND ECHO THE PATIENT`S DAUGHTER REQUESTED. PER MD "THERE IS NO NEED." DAUGHTER IS MADE AWARE.
[2018-03-17] MEDS: Z GUARD REMEDY 2 OZ OINT TP SCH (18:58)
--- NOTE | 2018-03-17 18:59 | NUR ---
MS/RN CLOSING NOTE PATIENT ALERT AND ORIENTED X1. PATIENT IS GIVEN REDIRECTION AND REORIENTATION NEEDED. DENIES SOB. RESPIRATION REGULAR AND UNLABORED. O2 SATURATION IN ROOM AIR AT 97%. DENIES PAIN. PATIENT WITH NO S/S DISTRESS. GT FEEDING ON PER ORDER AND PATIENT TOLERATING IT WELL. NO RESIDUAL NOTED. JASON CATH IN PLACE AND DRAINING FREELY. NOTED CLEAR AND YELLOW COLOR URINE WITH NO FOUL ODOR. PEGGY PICC LINE PATENT AND SALINE LOCKED. GOOD AND GENTLE SKIN CARE RENDERED. ALL NEEDS ATTENDED AND ANTICIPATED. BED LOW AND LOCKED. SIDE RAILS UP X3. CALL LIGHT WITHIN REACH. WILL CONTINUE TO MONITOR.
--- NOTE | 2018-03-17 19:30 | NUR ---
RN NOTES RECEIVED PT. AWAKE ON BED, A/OX1, HARD OF HEARING, FAMILY AT BEDSIDE, TUBE FEEDING RUNNING @ 60ML/HR, NO RESIDUAL NOTEDF/C DRAINING CLEAR YELLOW URINE, PICC LINE IN PLACE, SIDERAILSUPX2, CONTINUE TO MONITOR
[2018-03-17 20:00] VITALS: BP 130/81
[2018-03-17] MEDS: ACETAMINOPHEN 650 MG/20.3 ML UDC GT PRN (20:15)
--- NOTE | 2018-03-17 20:20 | NUR ---
RN NOTES PT HAS TEMPERATURE OF 99.7-TYLENOL 650MG VIA gt GIVEN ORDERED
--- NOTE | 2018-03-17 21:15 | NUR ---
RN NOTES AFTER GIVING TYLENOL PT TEMP WENT DOWN TO 98.7
[2018-03-17] MEDS: ATORVASTATIN 10 MG TABLET GT SCH (22:03)
[2018-03-17] MEDS: SENNOSIDES 8.6 MG TABLET GT SCH (22:03)
[2018-03-18] MEDS: CEFTRIAXONE 1 G in IV D5W 50 ML IV SCH (01:13)
[2018-03-18] MEDS: JEVITY 1.2 CAL 1,000 ML BOTTLE GT PRN (05:57)
--- NOTE | 2018-03-18 06:55 | NUR ---
RN NOTES SLEEPING BUT AROUSABLE, MORNING CARE RENDERED, PT. NEEDS ATTENDED
--- NOTE | 2018-03-18 07:59 | NUR ---
MS RN OPENING NOTE PATIENT IS ALERT AND ORIENTED x1, HARD OF HEARING. CALL LIGHT WITHIN REACH AND SAFETY MEASURES IMPLEMENTED. IN BED LOCKED IN LOWEST POSITION WITH SIDE RAILS UP. PEGGY PICC LINE INTACT AND PATENT AT THIS TIME, FLUSHES WELL. G-TUBE INTACT AND PATENT WITH TUBE FEEDING RUNNING AT 60 ML/HR TOLERATING WELL. JASON CATHETER IN PLACE, DRAINING WELL. WILL CONTINUE TO MONITOR THROUGHOUT SHIFT
[2018-03-18 08:00] VITALS: BP 148/72
[2018-03-18] MEDS: POTASSIUM CHLORIDE 20 MEQ POWDER PACKET GT SCH (08:39)
[2018-03-18] MEDS: ASPIRIN 81 MG TAB.CHEW GT SCH (08:39)
[2018-03-18] MEDS: PANTOPRAZOLE 40 MG/PACK PACK GT SCH (08:40)
[2018-03-18] MEDS: AMLODIPINE BESYLATE 5 MG TABLET GT SCH (08:40)
[2018-03-18] MEDS: FUROSEMIDE 20 MG/2 ML VIAL IV SCH (08:40)
[2018-03-18] MEDS: Z GUARD REMEDY 2 OZ OINT TP SCH (08:40)
[2018-03-18] MEDS: ENOXAPARIN SODIUM 40 MG/0.4 ML DISP.SYRIN SQ SCH (08:41)
[2018-03-18] MEDS: HYDROCORTISONE CR 30 GM TUBE RC SCH ×3 (08:43→16:17)
[2018-03-18 16:27] VITALS: BP 129/62
--- NOTE | 2018-03-18 18:58 | NUR ---
MS RN CLOSING NOTE PATIENT IS ALERT AND ORIENTED x1. NO FACIAL GRIMACING NOTED FOR PAIN. NO SOB OR DISTRESS NOTED. CALL LIGHT WITHIN REACH AT ALL TIMES. SAFETY MEASURES IMPLEMENTED. BED LOCKED IN LOWEST POSITION. JASON CATHETER IN PLACE, DRAINING WELL-1450. PEGGY PICC LINE INTACT AND PATENT NO REDNESS OR SWELLING NOTED, FLUSHES WELL. G-TUBE INTACT AND PATENT, WITH TUBE FEEDING RUNNING AT 60 ML/HR NO RESIDUAL NOTED AND TOLERATED WELL. ALL SKIN TREATMENT DONE. WILL ENDORSE TO FOAM MACHINE OPERATOR FOR PALMER
--- NOTE | 2018-03-18 19:45 | NUR ---
RN INITIAL NOTE PT IS IN BED RESTING, A/O X1 AK[place]K. DAUGHTER AT BEDSIDE. NO SIGNS OF SOB OR DISTRESS, BREATHING EVENLY AND UNLABORED. IV ACCESS IS INTACT AT PATENT AT THIS TIME. G-TUBE IS INTACT WITH FEEDING AT 60 ML/HR. BED IS IN LOW AND LOCKED POSITION, SIDE RAILS X3 ARE UP. BED ALARM IS ON. WILL CONTINUE TO MONITOR PT
[2018-03-18 20:00] VITALS: BP 137/63
[2018-03-18 20:36] VITALS: BP 137/63
[2018-03-18] MEDS: SENNOSIDES 8.6 MG TABLET GT SCH (21:04)
[2018-03-18] MEDS: ATORVASTATIN 10 MG TABLET GT SCH (21:04)
[2018-03-19] MEDS: JEVITY 1.2 CAL 1,000 ML BOTTLE GT PRN ×2 (01:02→20:10)
--- NOTE | 2018-03-19 06:26 | NUR ---
MS RN CLOSING NOTE PT IS IN BED AWAKE AND ALERT. NO SIGNS OF SOB OR DISTRESS, BREATHING EVENLY AND UNLABORED ON RA. GTUBE IS INTACT AND PATENT WITH FEEDING RUNNING AT 60 ML/HR. JASON CATHETER IS INTACT AND DRAINING.ALL NEEDS WERE ANTICIPATED AND MET. BED IS IN LOW AND LOCKED POSITION, SIDE RAILS UP X3. BED ALARM IS ON. WILL ENDORSE TO DAYSHIFT
--- NOTE | 2018-03-19 07:40 | NUR ---
MS RN OPENING NOTE PATIENT IS ALERT AND ORIENTED X1. NO FACIAL GRIMACING NOTED FOR PAIN. NO SOB OR DISTRESS NOTED STABLE ON ROOM AIR. CALL LIGHT WITHIN REACH AND SAFETY MEASURES IMPLEMENTED. BED LOCKED IN LOWEST POSITION WITH SIDE RAILS UP. JASON CATHETER DRAINING WELL, CLEAR AND YELLOW URINE NOTED. WOUND TREATMENT TO BE DONE THROUGHOUT SHIFT. G-TUBE SITE CLEAN AND INTACT, TUBE FEEDING RUNNING AT 60 ML/HR RUNNING WELL. PEGGY PICC LINE INTACT AND FLUSHES WELL. WILL CONTINUE TO MONITOR THROUGHOUT SHIFT.
[2018-03-19 08:00] VITALS: BP 159/58
[2018-03-19] MEDS: PANTOPRAZOLE 40 MG/PACK PACK GT SCH (09:17)
[2018-03-19] MEDS: POTASSIUM CHLORIDE 20 MEQ POWDER PACKET GT SCH (09:17)
[2018-03-19] MEDS: AMLODIPINE BESYLATE 5 MG TABLET GT SCH (09:18)
[2018-03-19] MEDS: FUROSEMIDE 20 MG/2 ML VIAL IV SCH (09:18)
[2018-03-19] MEDS: ENOXAPARIN SODIUM 40 MG/0.4 ML DISP.SYRIN SQ SCH (09:19)
[2018-03-19] MEDS: Z GUARD REMEDY 2 OZ OINT TP SCH (09:20)
[2018-03-19] MEDS: ASPIRIN 81 MG TAB.CHEW GT SCH (09:20)
[2018-03-19] MEDS: HYDROCORTISONE CR 30 GM TUBE RC SCH ×3 (09:21→16:37)
[2018-03-19 16:00] VITALS: BP 133/74
--- NOTE | 2018-03-19 18:33 | NUR ---
MS RN CLOSING NOTE PATIENT RESTING COMFORTABLY IN BED LOCKED IN LOWEST POSITION WITH SIDE RAILS x2. NO FACIAL GRIMACING NOTED FOR PAIN. NO SOB OR DISTRESS NOTED, ON ROOM AIR WITH 99% O2 SAT. CALL LIGHT WITHIN REACH AT ALL TIMES. SAFETY MEASURES IMPLEMENTED. ALL DUE MEDICATIONS GIVEN ORDERED. ALL NURSING CARE NEEDS ATTENDED TO. PEGGY PICC LINE INTACT AND PATENT, NO REDNESS OR SWELLING NOTED. G-TUBE SITE KEPT CLEAN DRY AND INTACT, TUBE FEEDING RUNNING AT 60 ML/HR TOLERATING WELL NO RESIDUAL NOTED. JASON CATHETER IN PLACE, DRAINING WELL WITH 1200 OUTPUT CLEAR AND YELLOW. LABS IN AM. POSSIBLE DISCHARGE TOMORROW. WILL ENDORSE TO STEAM TRAP MAN NURSE FOR PALMER
--- NOTE | 2018-03-19 19:45 | NUR ---
MS RN INITIAL NOTE PT IS IN BED RESTING, A/O X1 PILOT STATION. FAMILY AT BEDSIDE. NO SIGNS OF SOB OR DISTRESS, BREATHING EVENLY AND UNLABORED. IV ACCESS IS INTACT AT PATENT AT THIS TIME. G-TUBE IS INTACT WITH FEEDING AT 60 ML/HR. JASON CATH IS INTACT AND DRAINING. BED IS IN LOW AND LOCKED POSITION, SIDE RAILS X3 ARE UP. BED ALARM IS ON. WILL CONTINUE TO MONITOR PT
[2018-03-19 20:00] VITALS: BP 129/59
[2018-03-19] MEDS: SENNOSIDES 8.6 MG TABLET GT SCH (21:03)
[2018-03-19] MEDS: ATORVASTATIN 10 MG TABLET GT SCH (21:03)
[2018-03-20 06:38] LABS: BASOPHILS % (AUTO) 0.4 % (0.0-2.0); EOSINOPHILS % (AUTO) 5.4 % (0.0-6.0); HEMATOCRIT 36 % (33-45); HEMOGLOBIN 12.1 g/dL (11.5-14.8); LYMPHOCYTES # (AUTO) 2.3 /CMM (0.8-4.8); LYMPHOCYTES % (AUTO) 23.4 % (20.0-44.0); MEAN CORPUSCULAR HGB CONC 34 g/dl (31.0-36.0); MEAN CORPUSCULAR VOLUME 91 fL (82-100); MONOCYTES # (AUTO) 0.7 /CMM (0.1-1.30); MONOCYTES % (AUTO) 7.3 % (2.0-12.0); NEUTROPHILS # (AUTO) 6.2 /CMM (1.8-8.9); NEUTROPHILS % (AUTO) 63.5 % (43.0-81.0); PLATELET COUNT (AUTO) 472 /CMM (150-450); RDW COEFFICIENT OF VARIATION 14.3 (11.5-15.0); RED BLOOD CELL COUNT(AUTO) 3.88 MIL/uL (4.0-5.2); WHITE BLOOD COUNT (AUTO) 9.8 K/uL (4.3-11.0)
--- NOTE | 2018-03-20 06:48 | NUR ---
MS RN CLOSING NOTE PT IS IN BED SLEEPING, EASILY AROUSED. PT WAS ABLE TO GET MORE SLEEP TONIGHT WITH LESS CONFUSION. NO SIGNS OF SOB OR DISTRESS, BREATHING EVENLY AND UNLABORED ON RA. GTUBE IS INTACT AND PATENT WITH FEEDING RUNNING AT 60 ML/HR. JASON CATHETER IS INTACT AND DRAINING. NO ACUTE CHANGES THROUGHOUT THE SHIFT. ALL NEEDS WERE ANTICIPATED AND MET. BED IS IN LOW AND LOCKED POSITION, SIDE RAILS UP X3. BED ALARM IS ON. WILL ENDORSE TO DAYSHIFT
[2018-03-20 06:57] LABS: CALCIUM, SERUM 8.6 mg/dL (8.5-10.1); CARBON DIOXIDE 29 mmol/L (21-32); CHLORIDE 110 mmol/L (98-107); CREATININE 0.5 mg/dL (0.6-1.3); GLUCOSE 128 mg/dL (74-106); POTASSIUM 4.1 mmol/L (3.5-5.1); SODIUM SERUM 145 mmol/L (136-145); UREA NITROGEN, BLOOD 40 mg/dL (7-18)
--- NOTE | 2018-03-20 07:30 | NUR ---
RECEIVED PT. IN AM ALERT AND ORIENTED X1.TYBE FEEDING INFUSING.NO RESIDUAL.
[2018-03-20 08:00] VITALS: BP 130/62
--- NOTE | 2018-03-20 10:30 | NUR ---
DTR. HERE ALL DAY.
[2018-03-20] MEDS: ASPIRIN 81 MG TAB.CHEW GT SCH (10:41)
[2018-03-20] MEDS: POTASSIUM CHLORIDE 20 MEQ POWDER PACKET GT SCH (10:41)
[2018-03-20] MEDS: FUROSEMIDE 20 MG/2 ML VIAL IV SCH (10:41)
[2018-03-20] MEDS: PANTOPRAZOLE 40 MG/PACK PACK GT SCH (10:42)
[2018-03-20] MEDS: AMLODIPINE BESYLATE 5 MG TABLET GT SCH (10:42)
[2018-03-20] MEDS: ENOXAPARIN SODIUM 40 MG/0.4 ML DISP.SYRIN SQ SCH (10:43)
[2018-03-20] MEDS: Z GUARD REMEDY 2 OZ OINT TP SCH (11:13)
[2018-03-20] MEDS: HYDROCORTISONE CR 30 GM TUBE RC SCH ×2 (11:13→13:21)
[2018-03-20] MEDS: ACETAMINOPHEN 650 MG/20.3 ML UDC GT PRN (14:22)
--- NOTE | 2018-03-20 14:50 | NUR ---
m/s fashion illustrator: notes dr. william notified and made aware that [facility] with order to continue home medications, keep phillips catheter, and remove picc line. orders read back and carried out. rn made aware. daughter at bedside and made aware of eta orange picker machine operator at 1600.
--- NOTE | 2018-03-20 15:00 | NUR ---
DTR. REFUSED DISCHARGE PHOTOS,PICC LINE REMOVED.JASON CATH LEFT IN REPORT CALLED TO RN AT [facility].DTR. AT BEDSIDE ALL DAY.
[2018-03-20 16:00] VITALS: BP 124/67
--- NOTE | 2018-03-20 16:57 | NUR ---
AWAITING AMBULANCE ARRIVAL.
--- NOTE | 2018-03-20 17:30 | NUR ---
DRIVERS HERE FOR TRANSPORT TO [facility].REPORT GIVEN.TAKEN VIA AMB. TO [facility].DTR. TO FOLLOW PT. TO [facility].
== END 2018-03-20 17:54 | DRG 871 ==
LOC: ER 19:54 → TELE 22:29 → MED 03-14 21:20
PROVIDERS: ADMIT Nurse Practitioner Primary Care; ATTEND Internal Medicine
PROC: 02HV33Z Insertion of Infusion Device into Superior Vena Cava, Percutaneous Approach (ICD-10-PCS; principal; 2018-03-17)
PROC: B548ZZA Ultrasonography of Superior Vena Cava, Guidance (ICD-10-PCS; 2018-03-17)
DX: A41.9 Sepsis, unspecified organism (principal); J69.0 Pneumonitis due to inhalation of food and vomit; I21.4 Non-ST elevation (NSTEMI) myocardial infarction; J96.90 Respiratory failure, unspecified, unspecified whether with hypoxia or hypercapnia; L89.159 Pressure ulcer of sacral region, unspecified stage; L03.116 Cellulitis of left lower limb; D63.8 Anemia in other chronic diseases classified elsewhere; I11.0 Hypertensive heart disease with heart failure; I50.9 Heart failure, unspecified; G20 Parkinson's disease; Z86.74 Personal history of sudden cardiac arrest; Z93.1 Gastrostomy status; K22.4 Dyskinesia of esophagus; Z86.73 Personal history of transient ischemic attack (TIA), and cerebral infarction without residual deficits; Z90.10 Acquired absence of unspecified breast and nipple; Z87.01 Personal history of pneumonia (recurrent); Z85.3 Personal history of malignant neoplasm of breast; E78.5 Hyperlipidemia, unspecified; K20.9 Esophagitis, unspecified; M17.0 Bilateral primary osteoarthritis of knee; Z90.11 Acquired absence of right breast and nipple; Z98.890 Other specified postprocedural states
CPT/HCPCS: 36415; 71045-TC; 80048-TC; 80053-TC; 80076-TC; 81000-TC; 83605-TC; 83880; 84484-TC; 85025-TC; 85730-TC; 87040-TC; 87081-TC; 87086-TC; 97110-TC; 97112-TC; 97530-TC; A4606; A6402; A6403; J0696; J1650; J1940; J2543; J3370; J7050; J7060; Q0162; Z7610

== ENCOUNTER 2018-05-02 17:10 | Inpatient (IN) | payer MEDICARE, OTHER ==
[~2018-05-02] VITALS: Ht 147.3 cm; Wt 59.0 kg
--- NOTE | 2018-05-02 17:30 | NUR ---
BIBDTR FROM HOME DT JT MALFUNCTION. PER REPORT, IT STARTED NOT WORKING TODAY. SITE APPEARS RED. TUBE NOTED CLOGGED, PATIENT NOT IN DISTRESS. VSS.
--- NOTE | 2018-05-02 18:12 | NUR ---
PAGED DR BRANDON FOR CONSULT
--- NOTE | 2018-05-02 18:33 | NUR ---
ATTEMPTED TO FLUSH PEG TUBE BUT UNABLE TO SINCE SHE C/O PAIN DURING THE ATTEMPT. DR GREGG AWARE. DR BRANDON PAGED
--- NOTE | 2018-05-02 18:38 | NUR ---
PAGED DR. OLIVIER CANALES
--- NOTE | 2018-05-02 18:38 | NUR ---
PER DR. OLIVIER CANALES, WE WILL ADMIT TO EPIC
--- NOTE | 2018-05-02 18:59 | NUR ---
L AC 20G PLACED PATENT AND FLUSING WELL
[2018-05-02 19:01] LABS: BASOPHILS % (AUTO) 0.1 % (0.0-2.0); EOSINOPHILS % (AUTO) 2.4 % (0.0-6.0); HEMATOCRIT 37 % (33-45); HEMOGLOBIN 12.1 g/dL (11.5-14.8); LYMPHOCYTES % (AUTO) 28.2 % (20.0-44.0); MEAN CORPUSCULAR HEMOGLOBIN 31 PG (26.0-33.0); MEAN CORPUSCULAR HGB CONC 33 g/dl (31.0-36.0); MEAN CORPUSCULAR VOLUME 94 fL (82-100); MONOCYTES # (AUTO) 1.1 /CMM (0.1-1.30); MONOCYTES % (AUTO) 10.6 % (2.0-12.0); NEUTROPHILS # (AUTO) 6.2 /CMM (1.8-8.9); NEUTROPHILS % (AUTO) 58.6 % (43.0-81.0); PLATELET COUNT (AUTO) 378 /CMM (150-450); RDW COEFFICIENT OF VARIATION 14.9 (11.5-15.0); RED BLOOD CELL COUNT(AUTO) 3.95 MIL/uL (4.0-5.2); WHITE BLOOD COUNT (AUTO) 10.6 K/uL (4.3-11.0)
--- NOTE | 2018-05-02 19:03 | NUR ---
PAGED [facility] FOR PANEL - SECURITY SYSTEM ANALYST LETI GRAVES
[2018-05-02 19:09] LABS: CALCIUM, SERUM 9.2 mg/dL (8.5-10.1); CARBON DIOXIDE 33 mmol/L (21-32); CHLORIDE 102 mmol/L (98-107); CREATININE 0.8 mg/dL (0.6-1.3); GLUCOSE 104 mg/dL (74-106); POTASSIUM 4.9 mmol/L (3.5-5.1); SODIUM SERUM 137 mmol/L (136-145); UREA NITROGEN, BLOOD 22 mg/dL (7-18)
[2018-05-02] MEDS ORDERED: IV D5/0.45 NACL 1,000 ML IV PRN (19:14)
--- NOTE | 2018-05-02 19:16 | NUR ---
CALLED NURSE SUP FOR MED SURG BED
[2018-05-02 19:18] LABS: INR 0.95 (0.87-1.13)
[2018-05-02] MEDS ORDERED: ONDANSETRON HCL/PF 4 MG/2 ML VIAL IVP PRN (19:30)
[2018-05-02] MEDS ORDERED: MORPHINE SULFATE INJ 2 MG/ML DISP.SYRIN IV PRN (19:30)
--- NOTE | 2018-05-02 19:58 | NUR ---
REPORT GIVEN TO AIDA NAVARRO FOR PALMER
[2018-05-02] MEDS ORDERED: OLAN2.5T3 GT (20:09)
[2018-05-02] MEDS ORDERED: LANS30CA56 GT (20:09)
[2018-05-02] MEDS ORDERED: METO-356 PO (20:09)
[2018-05-02] MEDS ORDERED: ATOR20TA GT (20:09)
[2018-05-02] MEDS ORDERED: ASPI-605 GT (20:09)
[2018-05-02] MEDS ORDERED: FURO-145 GT (20:09)
[2018-05-02] MEDS ORDERED: BETH10TA8 GT (20:09)
[2018-05-02 20:45] VITALS: BP 158/70
[2018-05-02 20:55] VITALS: BP 158/70
--- NOTE | 2018-05-02 20:55 | NUR ---
RN NOTES RECEIVED PT. FROM ER WITH GT MALFUNCTION, DAUGHTER AT BEDSIDE, ITALIAN SPEAKING, A/OX4. G-TUBE CLAMPED, ADMISSIONS INSTRUCTION WAS RENDERED, CALL LIGHT WITHIN REACH, SIDRAILSUPX2, CONTINUE TO MONITOR
[2018-05-02] MEDS: ENOXAPARIN SODIUM 40 MG/0.4 ML DISP.SYRIN SQ SCH (21:00)
--- NOTE | 2018-05-02 21:10 | NUR ---
RN NOTES SPOKE TO DR. VUONG AND GOT AN ORDER TO HOLD LOVENOX FOR TONMARIANNE ORDER NOTED AND CARRIED OUT
--- NOTE | 2018-05-02 21:35 | NUR ---
RN NOTES SPOKE TO HER DAUGHTER AMRLENE AND GOT A TELEPHONE CONSENT FOR G-TUBE REPLACEMENT , WITNESSED BY ANOTHER RN, QUIN
[2018-05-03] MEDS: ACETAMINOPHEN 650 MG/SUPP.RECT RC PRN ×2 (05:42→14:06)
[2018-05-03 06:25] LABS: BASOPHILS % (AUTO) 0.4 % (0.0-2.0); EOSINOPHILS % (AUTO) 2.5 % (0.0-6.0); HEMATOCRIT 36 % (33-45); LYMPHOCYTES # (AUTO) 2.4 /CMM (0.8-4.8); LYMPHOCYTES % (AUTO) 25.8 % (20.0-44.0); MEAN CORPUSCULAR HEMOGLOBIN 31 PG (26.0-33.0); MEAN CORPUSCULAR HGB CONC 33 g/dl (31.0-36.0); MEAN CORPUSCULAR VOLUME 94 fL (82-100); MONOCYTES % (AUTO) 10.6 % (2.0-12.0); NEUTROPHILS # (AUTO) 5.7 /CMM (1.8-8.9); NEUTROPHILS % (AUTO) 60.7 % (43.0-81.0); PLATELET COUNT (AUTO) 340 /CMM (150-450); RED BLOOD CELL COUNT(AUTO) 3.84 MIL/uL (4.0-5.2); WHITE BLOOD COUNT (AUTO) 9.5 K/uL (4.3-11.0)
[2018-05-03 06:35] LABS: CALCIUM, SERUM 8.7 mg/dL (8.5-10.1); CARBON DIOXIDE 28 mmol/L (21-32); CHLORIDE 105 mmol/L (98-107); CREATININE 0.5 mg/dL (0.6-1.3); GLUCOSE 120 mg/dL (74-106); MAGNESIUM 2.1 mg/dL (1.8-2.4); PHOSPHORUS 3.5 mg/dL (2.5-4.9); SODIUM SERUM 139 mmol/L (136-145); UREA NITROGEN, BLOOD 16 mg/dL (7-18)
[2018-05-03 06:41] LABS: CHOLESTEROL 124 mg/dL (<200); HDL CHOLESTEROL 49 mg/dL (40-60); LDL 68 mg/dL (0-99); THYROID STIMULATING HORMONE 0.854 uIU/mL (0.358-3.74); TRIGLYCERIDES 63 mg/dL (30-150)
--- NOTE | 2018-05-03 07:00 | NUR ---
RN NOTES AWAKE, DENIES PAIN, NO SOB, MORNING CARE RENDERED, PT. NEEDS ATTENDED
[2018-05-03] MEDS ORDERED: METO25TA6 GT (07:05)
--- NOTE | 2018-05-03 07:30 | NUR ---
MS RN OPENING NOTES RECEIVED PATIENT IN STABLE CONDITION. IN NO APPARENT DISTRESS. BEDSIDE RAILS ARE UPX2. BED IS LOCKED AND LOWERED. IV LINE IS INTACT AND PATENT. CALL LIGHT IS WITHIN REACH. WILL CONTINUE TO MONITOR.
[2018-05-03] MEDS ORDERED: ESCI5TAB GT (07:52)
[2018-05-03 07:58] VITALS: BP 167/66
[2018-05-03] MEDS: PANTOPRAZOLE 40 MG VIAL IV SCH (08:20)
--- NOTE | 2018-05-03 10:04 | NUR ---
INFORMED OR NURSE OF FAMILY'S REQUEST TO PROVIDE ANESTHESIOLOGIST WITH PATIENT'S HISTORY AND SPECIAL REQUESTS. OR NURSE IS AWARE. PATIENT IS SCHEDULED FOR SURGERY AT 11:15.
--- NOTE | 2018-05-03 10:50 | NUR ---
CONTACTED DR. OLIVIER PIERCE OFFICE [phone] TO INFORM HIM THAT HIS PATIENT STEPHEN LÓPEZ IS ADMITTED TO [facility].
--- NOTE | 2018-05-03 11:52 | NUR ---
PATIENT TAKEN TO OPERATION ROOM.
--- NOTE | 2018-05-03 12:50 | NUR ---
PATIENT BACK FROM OR S/P PEG PLACEMENT, VS BP 124/63 HR 71 RESP 16 99% SATURATION ON RA, TEMP 97.8
[2018-05-03 16:09] VITALS: BP 138/53
--- NOTE | 2018-05-03 18:20 | NUR ---
MS RN CLOSING NOTES PATIENT IS IN STABLE CONDITION. IN NO APPARENT DISTRESS. BEDSIDE RAILS ARE UPX2. BED IS LOCKED AND LOWERED. CALL LIGHT IS WITHIN REACH. IV LINE IS INTACT AND PATENT. ALL NEEDS WERE MET. WILL ENDORSE CARE TO REVENUE INTEGRITY ANALYST NURSE FOR PALMER.
[2018-05-03] MEDS ORDERED: JEVITY 1.2 CAL 1,000 ML BOTTLE GT PRN (19:30)
--- NOTE | 2018-05-03 19:30 | NUR ---
RN NOTES RECEIVED PT. AWAKE ON BED, A/OX4, [place] SPEAKING BUT UNDERSTAND LITTLE [employer] FAMILY AT BEDSIDE, S/P G-TUBE REPLACEMENT, NOTED LEFT WRIST SWOLLEN, X-RAY JUST OF THE WRIST WAS DONE, WAITING FOR THE RESULT, CALL LIGHT WITHIN REACH, [id number], CONTINUE TO MONITOR
[2018-05-03 20:00] VITALS: BP 148/64
[2018-05-03 20:04] VITALS: BP 152/64
--- NOTE | 2018-05-03 20:10 | NUR ---
RN NOTES CALLED DR. CANALES AND ASKED FOR AN ORDER FOR THIS PT. BUT DR. CANALES INFORMED ME WILL THAT HE ASKED HOSPITALIST TO ADMIT THIS PT. LAST NIGHT. WILL CALL ADMITTING TO CHANGE THE PROVIDER TO LETI SAM
--- NOTE | 2018-05-03 20:30 | NUR ---
RN NOTES SPOKE TO DR. VUONG AND GOT AN ORDER FOR TYLENOL 650 MG GT, ORDER NOTED NAD CARRIED OUT
--- NOTE | 2018-05-03 20:35 | NUR ---
RN NOTES DR. MATT ISLAS CALLED REGARDING THIS PT. BECAUSE DAYSHIFT BEEN CALLING DR. ISLAS FOR THIS PT... DR. ISLAS TOLD ME THAT THIS PT. IS UNDER DR. CANALES THAT'S WHY HE DIDN'T MAKE ROUNDS TO THIS PT, BUT I EXPLAINED TO DR. ISLAS THAT THERE'S SOME MISCOMMUNICATION. I INFORMED DR. ISLAS THAT I ALREADY SPOKE TO DR. CANALES AND HE INFORMED ME THAT HE ASKED HOSPITALIST TO ADMIT THIS PATIENT LAST NIGHT. DR. ISLAS UNDERSTAND IT AND OLD ME TOT HELL THE FAMILY WHAT HAPPENED AND HE WILL SEE THE PT. IN THE MORNING
--- NOTE | 2018-05-03 20:40 | NUR ---
RN NOTES TALKED TO PT'S DAUGHTER MARLENE AND EXPLAINED WHAT HAPPENED THAT'S WHY DR. ISLAS DID NOT SEE THE PT. TODAY AND SHE UNDERSTAND IT.
[2018-05-03] MEDS: ACETAMINOPHEN 650 MG/20.3 ML UDC GT PRN (20:41)
--- NOTE | 2018-05-03 20:48 | NUR ---
RN NOTES COMPLAINED OF PAIN ON HER LEFT WRIST, AND ASKED FOR TYLENOL, TYLENOL 650MG GT GIVEN ORDERED
[2018-05-03] MEDS: ENOXAPARIN SODIUM 40 MG/0.4 ML DISP.SYRIN SQ SCH (20:54)
--- NOTE | 2018-05-03 21:00 | NUR ---
RN NOTES PT.'S DAUGHTER IS REFUSING IV FLUID AFTER I STARTED THE G-TUBE FEEDING
--- NOTE | 2018-05-03 21:55 | NUR ---
RN NOTES G-TUBE FEEDING STARTED , JEVITY 1.2 @ 30ML /HR
[2018-05-03] MEDS ORDERED: ATORVASTATIN 10 MG TABLET PO SCH (22:00)
--- NOTE | 2018-05-04 05:30 | NUR ---
RN NOTES PT. ASKED FOR TYLENOL , COMPLAINED OF LEFT WRIST PAIN.. TYLENOL 650MG GT GIVEN ORDERED
[2018-05-04] MEDS: ACETAMINOPHEN 650 MG/20.3 ML UDC GT PRN (05:31)
--- NOTE | 2018-05-04 06:42 | NUR ---
RN NOTES AWAKE, PT. IS TOLERATING G-TUBE FEEDING WELL, MORNING CARE RENDERED, SIDRAILS UPX2, PT. NEEDS ATTENDED
--- NOTE | 2018-05-04 07:20 | NUR ---
MS RN OPENING NOTES RECEIVED PATIENT IN STABLE CONDITION. IN NO APPARENT DISTRESS. BEDSIDE RAILS ARE UPX2. BED IS LOCKED AND LOWERED. CALL LIGHT IS WITHIN REACH. IV LINE IS INTACT AND PATENT. WILL CONTINUE TO MONITOR.
[2018-05-04 07:36] VITALS: BP 124/48
[2018-05-04] MEDS: BETHANECHOL CHLORIDE (10 MG) 10 MG TABLET GT SCH ×2 (08:08→12:11)
[2018-05-04 08:09] VITALS: BP 124/48
[2018-05-04] MEDS: PANTOPRAZOLE 40 MG VIAL IV SCH (08:18)
[2018-05-04] MEDS ORDERED: ESCITALOPRAM OXALATE (10 MG) 10 MG TABLET PO SCH (09:00)
[2018-05-04] MEDS ORDERED: ASPIRIN EC 81 MG TABLET.DR PO SCH (09:00)
[2018-05-04] MEDS ORDERED: METOPROLOL TARTRATE 25 MG TABLET GT SCH (09:00)
[2018-05-04] MEDS ORDERED: OLANZAPINE 2.5 MG TABLET GT SCH (09:00)
--- NOTE | 2018-05-04 14:30 | NUR ---
MS RN CLOSING NOTES DISCHARGED PATIENT IN STABLE CONDITION. IN NO APPARENT DISTRESS. IV LINE WAS REMOVED. ID BAND WAS REMOVED. ALL NEEDS WERE MET. EXITCARE PAPERWORK PROVIDED TO THE PATIENT. PATIENTS FAMILY REFUSED FOLLOW UP APPOINTMENT. PATIENT WAS GIVEN PRESCRIPTIONS. PATIENT ESCORTED OUT OF THE FACILITY BY [facility] AND PATIENT WILL BE DRIVEN BY DAUGHTER MARLENE.
== END 2018-05-04 14:30 | disposition home or self-care (01) | DRG 394 ==
LOC: ER 17:11 → MEDSG2 20:41
PROC: 3E0G76Z Introduction of Nutritional Substance into Upper GI, Via Natural or Artificial Opening (ICD-10-PCS; 2018-05-03)
PROC: 0DH63UZ Insertion of Feeding Device into Stomach, Percutaneous Approach (ICD-10-PCS; principal; 2018-05-03 07:50)
DX: K94.23 Gastrostomy malfunction (principal); I50.32 Chronic diastolic (congestive) heart failure; I11.0 Hypertensive heart disease with heart failure; Y83.3 Surgical operation with formation of external stoma as the cause of abnormal reaction of the patient, or of later complication, without mention of misadventure at the time of the procedure; Y82.9 Unspecified medical devices associated with adverse incidents; Y92.009 Unspecified place in unspecified non-institutional (private) residence as the place of occurrence of the external cause; Z90.11 Acquired absence of right breast and nipple; Z79.82 Long term (current) use of aspirin; Z86.73 Personal history of transient ischemic attack (TIA), and cerebral infarction without residual deficits; Z85.3 Personal history of malignant neoplasm of breast; R13.10 Dysphagia, unspecified; Z79.899 Other long term (current) drug therapy; M17.0 Bilateral primary osteoarthritis of knee; G20 Parkinson's disease; H26.9 Unspecified cataract; M06.9 Rheumatoid arthritis, unspecified
CPT/HCPCS: 36415; 71045-TC; 73100-TC; 80048-TC; 80061-TC; 83735-TC; 84100-TC; 84443-TC; 85025-TC; 85730-TC; 86850-TC; 87081-TC; 92611-TC; A4606; A6402; C9113; J1650; J3490; Z7610